=== PATIENT | male | born 1930 | race Caucasian/White ===

== ENCOUNTER 2016-07-05 06:41 | Outpatient (CLI) | payer MEDICARE ==
[~2016-07-05] VITALS: Ht 175.3 cm; Wt 95.5 kg
--- NOTE | ~2016-07-05 | HEMODYNAMI ---
PATIENT:GAVIN VERONICA MEDICAL RECORD: [id number] : 34 LOCATION:[facility] ADMISSION DATE: 07/05/16 Generatedon:07/05/20169:24 Patient name: GAVIN VERONICA Patient #: [id number] SSN: [id number] : 1930 Date of study: 07/05/2016 Page: Of Hemodynamic Procedure Report Patient Data Patient Demographics Procedure consent was obtained First Name: GAVIN Gender: Male Last Name: JEREMÍAS : 1930 Middle Initial: E Age: 85 year(s) Patient #: [id number] Race: SSN: [id number] Additional ID: [id number] Contact details [address]: [address] [place] [address] State: [place] City: [place] Zip code: [address] Past Medical History Performed procedures and imaging results Date Procedure Procedure Results Comments 07/05/2016 No ACC stress or imaging studies were performed History of disease Date Diagnosis Comments CAD Allergies: No known allergies Admission Admission Data Admission Date: 07/05/2016 Admission Time: 6:41 Admit Source: Other Insurance Payor: Medicare Height (in.): 69 BSA: 2.11 (m2) Height (cm.): 175.26 BMI: 31.01 (kg/m2) Weight (lbs.): 210 Weight (kg.): 95.25 Medications upon Admission Medications Dosage Times Administered Last Remarks per Delivery Day Date and Time Aspirin Yes 07/05/2016 (any) 0:00 Lab Results Lab Result Date: 07/05/2016 Lab Result Time: 0:00 CBC Name Units Result Min Max Hemoglobin g/dl 12.6 -*(----)-- 13.5 17.5 Procedure Procedure Types Cath Procedure Diagnostic Procedure LHC LHC w/Coronaries w/Grafts PCI Procedure SVG-BMS/DERIK Initial Procedure Description Procedure Date Procedure Date: 07/05/2016 Procedure Start Time: 8:50 Procedure End Time: 9:23 Procedure Staff Name Function Reggie Maradiaga MD Performing Physician Page Gramajo RT Scrub Abbie Lopez RN Nurse Jeet Ridley RN Office Sweeper Niharika Burroughs RT Monitor Procedure Data Cath Procedure Fluoroscopy Diagnostic fluoroscopy Total fluoroscopy Time: 8.3 time: 8.3 min min Diagnostic fluoroscopy Total fluoroscopy dose: dose: 563.46 mGy 563.46 mGy Contrast Material Contrast Material Type Amount (ml) Isovue 300 128 Entry Location Entry Primary Successful Side Size Upsize Upsize Entry Closure Succes sful Closure Location (Fr) 1 (Fr) 2 (Fr) Remarks Device Remarks Femoral Right 5 Fr 6 Fr Exoseal artery Short Estimated blood loss: 10 ml Diagnostic catheters Device Type Used For End Catheter Placement Cordis 5Fr JL 4.0 Left Coronary Catheter (MP) Angiography Cordis 5Fr 3DRC Catheter Right Coronary (MP) Angiography Cordis Infinity 5Fr AR SVG Angiography MOD Catheter Cordis Infinity 5Fr AR SVG Angiography MOD Catheter Cordis Infinity 5Fr IM Internal mammary catheter arteriography Cordis Infinity 5Fr AR 2 MOD catheter Cordis 5Fr Pigtail LV Angiography Catheter (MP) Procedure Complications No complications Procedure Medications Medication Administration Route Dosage Oxygen NC 2 l/min Benadryl I.V. 50 mg Lidocaine 2% added to field 20 Heparin Flush Bag added to field 2 bags (1000units/500ml NS) 0.9% NaCl I.V. 100 ml/hr Versed I.V. 1 mg Fentanyl I.V. 50 mcg Versed I.V. 0.5 mg Fentanyl I.V. 25 mcg Versed I.V. 0.5 mg Fentanyl I.V. 25 mcg Heparin Bolus I.V. 9500 units Plavix P.O. 600 mg Hemodynamics Rest BSA: 2.11 (m2) O2 Consumption: Estimated: 237.87 (ml/min) O2 Consumption indexed : Estimated:112.73 (ml/min/m) Heart Rate: 67 (bpm) Pressure Samples Time Site Value (mmHg) Purpose Heart Use Rate(bpm) 9:05 LV 127/3,19 EDP 73 9:06 AO 126/53(82) Pullback 70 9:06 LV 137/2,22 Pullback 70 Gradients Valve Time Site 1 Site 2 Mean SEP/DFP Peak To Heart Use (mmHg) (sec/min) Peak Rate (mmHg) (bpm) Aortic 9:06 LV AO 12 19 11 70 137/2,22 126/53(82) Calculations Valve P-P Mean Valve Index Valve Source Name Gradient Area Flow (cm2) Aortic 11 12 11 12 Snapshots Pre Cath Intra NCS Post Cath Vital Signs Time Heart Resp SPO2 NIBP (mmHg) Rhythm Pain Sedation Rate (ipm) (%) Status Level (bpm) 8:39:18 65 22 97 173/84(125) NSR 0 (11) 10(A) , No pain 8:43:48 65 16 95 159/78(121) NSR 0 (11) 10(A) , No pain 8:48:18 67 16 94 138/72(103) NSR 0 (11) 9(A) , No pain 8:52:44 66 16 95 153/76(119) NSR 0 (11) 9(A) , No pain 8:57:17 72 16 94 153/78(110) NSR 0 (11) 9(A) , No pain 9:01:37 69 14 95 138/73(101) NSR 0 (11) 9(A) , No pain 9:06:05 69 14 96 127/62(97) NSR 0 (11) 9(A) , No pain 9:10:30 67 15 95 145/70(120) NSR 0 (11) 9(A) , No pain 9:14:52 67 16 96 128/60(90) NSR 0 (11) 10(A) , No pain 9:19:14 68 15 95 145/72(91) NSR 0 (11) 10(A) , No pain Medications Time Medication Route Dose Verified Delivered Reason Notes Effectiveness by by 8:38:37 Oxygen NC 2 Reggie Buffie used for l/min Trey Lopez RN procedure 8:38:44 Benadryl I.V. 50 mg Reggie Buffie used for Trey Lopez RN procedure 8:38:55 Lidocaine 2% added 20ml Reggie Reggie for local to vial Trey Maradiaga MD anesthetic field 8:39:01 Heparin Flush added 2 Reggie Reggie used for Bag to bags Trey Maradiaga MD procedure (1000units/500ml field NS) 8:39:11 0.9% NaCl I.V. 100 Reggie Buffie Per physician ml/hr Trey Lopez RN 8:43:42 Versed I.V. 1 mg Reggie Buffie for sedation Trey Lopez RN 8:43:48 Fentanyl I.V. 50 Reggie Buffie for sedation mcg Trey Lopez RN 8:50:28 Versed I.V. 0.5 Reggie Buffie for sedation mg Trey Lopez RN 8:50:33 Fentanyl I.V. 25 Reggie Buffie for sedation mcg Trey Lopez RN 9:00:41 Versed I.V. 0.5 Reggie Buffie for sedation mg Trey Lopez RN 9:00:46 Fentanyl I.V. 25 Reggie Buffie for sedation mcg Trey Lopez RN 9:10:29 Heparin Bolus I.V. 9,500 Reggie Buffie for verifie d units Trey Lopez RN anticoagulation with dr maradiaga 9:18:33 Plavix P.O. 600 Reggie Buffie for mg Trey Lopez RN antiplatelet therapy Procedure Log Time Note 7:56:46 Lab Result : Hemoglobin 12.6 g/dl 8:00:37 Admit Source: Other 8:00:39 Insurance Payor : Medicare 8:00:54 Patient Height : 175.26 cm 8:00:56 Patient Weight : 95.25 kg 8:01:47 Diagnostic Cath Status : Elective 8:02:35 ACC Patient presents with Stable Angina CCS Anginal Class 2--Slight limitation of ordinary activity. 8:02:38 ACCPatient has been prescribed/administered the following anti-anginal medication within the last 2 weeks: None 8:02:40 Time tracking: Regular hours 8:02:44 Plan of Care:Hemodynamics will remain stable., Cardiac rhythm will remain stable., Comfort level will be maintained., Respiratory function will remain adequate., Patient/ family verbilizes understanding of procedure., Procedure tolerated without complication., Recovers from procedure without complications.. 8:02:56 H&P Date Dictated: 06/27/2016 Within 30 days and on chart., H&P Addendum completed by physician on day of procedure. (MUST COMPLETE FOR ALL OUTPATIENTS). 8:03:02 ACC The patient was administered the following blood thiners within the last 24 hours: ACCAspirin 8:15:54 Jeet Ridley RN sent for patient. Start room use. 8:31:30 Patient received from Outpatients to [facility] 2 Alert and oriented. Tansferred to table in Supine position. 8:31:31 Warm blankets applied, and luz hugger turned on for patient comfort. 8:31:31 Correct patient and procedure confirmed by team. 8:31:32 Signed procedure consent form obtained from patient. 8:31:33 ECG and BP/O2 sat monitors applied to patient. 8:31:34 Full Disclosure recording started 8:37:42 Vital chart was started 8:37:47 Rhythm: sinus rhythm 8:37:50 Pre-procedure instructions explained to patient. 8:37:51 Pre-op teaching completed and patient verbalized understanding. 8:37:52 Family in waiting room. 8:37:54 Patient NPO since Midnight. 8:38:00 Patient allergic to No known allergies 8:38:03 Is the patient allergic to Iodine/contrast media? No. 8:38:10 Patient diabetic? No. 8:38:37 Oxygen 2 l/min NC was given by Abbie Lopez RN; used for procedure; 8:38:44 Benadryl 50 mg I.V. was given by Abbie Lopez RN; used for procedure; 8:38:55 Lidocaine 2% 20ml vial added to field was given by Reggie Maradiaga MD; for local anesthetic; 8:39:01 Heparin Flush Bag (1000units/500ml NS) 2 bags added to field was given by Reggie Mraadiaga MD; used for procedure; 8:39:11 0.9% NaCl 100 ml/hr I.V. was given by Abbie Lopez RN; Per physician; 8:41:20 Previous problem with sedation/anesthesia? No ? 8:41:23 Snore? Yes 8:41:24 Sleep apnea? No 8:41:25 Deviated septum? No 8:41:26 Opens mouth fully? Yes 8:41:26 Sticks out tongue? Yes 8:41:28 Airway obstruction? No ? 8:41:32 Dentures? Yes In 8:41:35 Pre procedure: right dorsailis pedis pulse 2+ Normal; easily identifiable; not easily obliterated 8:41:38 Patient pain scale 0/10 ?. 8:41:43 IV patent on arrival in left hand with 0.9% NaCl at [facility]. 8:41:47 Lab results completed and on chart. 8:41:50 Right groin area was prepped with chlora-prep and draped in sterile fashion 8:41:52 Alarms reviewed by R. N. 8:41:52 Sharps counted by scrub and verified by R.N. 8:41:57 Use device set Femoral Dx 8:41:58 Acist Syringe opened to sterile field. 8:41:58 Bag Decanter opened to sterile field. 8:41:59 Cardinal Cath Pack opened to sterile field. 8:41:59 Terumo 5Fr Cabot Sheath opened to sterile field. 8:42:00 St Jae 260cm J .035 wire opened to sterile field. 8:42:01 Acist Hand Control opened to sterile field. 8:42:01 Acist Manifold opened to sterile field. 8:42:02 Cordis Infinity 5Fr Multipack catheter opened to sterile field. 8:42:03 Tegaderm 4 x 4 opened to sterile field. 8:43:16 Final Timeout: patient, procedure, and site verified with staff and physician. All members of the team are in agreement. 8:43:23 Right groin site verified by team. 8:43:26 Physical assessment completed. ASA score P 2 - A patient with mild systemic disease as per Reggie Maradiaga MD. 8:43:29 Sedation plan: IV Moderate Sedation Versed, Fentanyl 8:43:42 Versed 1 mg I.V. was given by Abbie Lopez RN; for sedation; 8:43:48 Fentanyl 50 mcg I.V. was given by Abbie Lopez RN; for sedation; 8:47:43 Procedure started. 8:49:35 Baseline sample Acquired. 8:50:12 Local anesthetic to right femoral artery with Lidocaine 2% by Reggie Maradiaga MD.INITIAL ACCESS ONLY 8:50:28 Versed 0.5 mg I.V. was given by Abbie Lopez RN; for sedation; 8:50:33 Fentanyl 25 mcg I.V. was given by Abbie Lopez RN; for sedation; 8:51:17 A 5 Fr sheath was inserted into the Right Femoral artery 8:51:51 A Cordis 5Fr JL 4.0 Catheter (MP) was advanced over the wire and used for Left Coronary Angiography. 8:54:29 Catheter removed. 8:56:29 A Cordis 5Fr 3DRC Catheter (MP) was advanced over the wire and used for Right Coronary Angiography. 8:56:31 Catheter removed. 8:57:33 A Cordis Infinity 5Fr AR MOD Catheter was advanced over the wire and used for SVG Angiography. to RCA 8:58:57 A Cordis Infinity 5Fr AR MOD Catheter was advanced over the wire and used for SVG Angiography. to Circ 8:59:08 Catheter removed. 9:00:41 Versed 0.5 mg I.V. was given by Abbie Lopez RN; for sedation; 9:00:46 Fentanyl 25 mcg I.V. was given by Abbie Lopez RN; for sedation; 9:02:01 A Cordis Infinity 5Fr AR 2 MOD catheter was advanced over the wire and used for .SVG to Circ 9:02:33 Catheter removed. 9:02:40 A Cordis Infinity 5Fr IM catheter was advanced over the wire and used for Internal mammary arteriography.to LAD 9:04:46 Merit BasixCompak Inflation Kit opened to sterile field. 9:04:47 High Pressure Extension Tubing (Trey) opened to sterile field. 9:04:48 [place] Dajie Luge Straight 300cm 0.014 guide wire opened to sterile field. 9:04:48 Medtronic Launcher 6Fr AR 1.0 guide catheter opened to sterile field. 9:04:50 Terumo 6Fr Cabot Sheath opened to sterile field. 9:04:57 A Cordis 5Fr Pigtail Catheter (MP) was advanced over the wire and used for LV Angiography. 9:05:49 LV gram done using CANTRELL 9:05:53 EF : 50 % 9:05:55 LV hemodynamics recorded. 9:06:17 Injector settings: Ml/sec: 10, Volume: 20, 9:06:19 Catheter removed. 9:07:19 Sheath upsized to a 6 Fr Short. 9:07:41 PCI Site: SVG to RCA 9:07:44 ACC Pre-intervention MARTINE Flow is 2. 9:09:14 6 Fr AR 1.0 guide catheter was inserted over the wire 9:10:26 Luge wire advanced. 9:10:29 Heparin Bolus 9,500 units I.V. was given by Abbie Lopez RN; for anticoagulation; verified with dr maradiaga 9:12:35 Inflation number: 1 A [place] Dajie Ellis 2.0 X 20 balloon was prepped and advanced across the Aorta Right -> Dist RCA, then inflated to 10 ABDIAZIZ for 0:17 (min:sec). 9:13:52 Balloon removed over the wire. 9:16:00 Inflation Number: 2 A Medtronic Resolute 3.0 X 22 stent was prepped and advanced across the Aorta Right -> Dist RCA. The stent was deployed at 15 ABDIAZIZ for 0:31 (min:sec). 9:16:46 Stent catheter was removed intact over wire. 9:16:46 Wire removed. 9:16:47 Guide catheter removed. 9:16:58 Cordis 6Fr Exoseal opened to sterile field. 9:17:08 Sheath removed intact; hemostasis achieved with Exoseal to the Right Femoral artery. 9:17:10 Procedure ended.(Physican Out) 9:17:24 Fluoroscopy time 08.30 minutes. 9:17:29 Flurop Dose total: 563.46 9:17:29 Fluoroscopy dose: 563.46 mGy 9:17:33 Contrast amount:Isovue 300 128ml. 9:17:35 Sharps counted by scrub and verified by R.N. 9:17:37 Insertion/operative site no bleeding no hematoma. 9:17:43 Post-op/insertion site Right Femoral artery dressed using a 4 x 4 and Tegaderm. 9:17:46 Post right femoral artery:stable, clean and dry 9:17:47 Post Procedure Pulses reassessed and unchanged 9:17:50 Post-procedure physical assessment completed. ASA score P 2 - A patient with mild systemic disease as per Reggie Maradiaga MD. 9:17:52 Post procedure rhythm: unchanged. 9:17:55 Estimated blood loss: 10 ml 9:17:56 Post procedure instruction explained to patient.Patient verbalizes understanding. 9:17:57 Patient needs reinforcement of post procedure teaching. 9:18:09 Procedure type changed to Cath procedure, Diagnostic procedure, LHC, LHC w/Coronaries w/Grafts, PCI procedure, SVG-BMS/DERIK Initial 9:18:14 Procedure Complication : No complications 9:18:17 See physician's report for complete and final results. 9:18:33 Plavix 600 mg P.O. was given by Abbie Lopez RN; for antiplatelet therapy; 9:19:26 Procedure and supply charges have been captured, reviewed, submitted and are correct. 9:22:56 Vital chart was stopped 9:23:03 Report given to Post Procedure Room. 9:23:07 Patient transfered to Post Procedure Room with Stretcher. 9:23:17 Procedure ended. 9:23:17 Full Disclosure recording stopped 9:23:31 End room use (Document Last) Intervention Summary Intervention Notes Time ActionType Lesion and Equipment Action# Pressure Duration Attributes Used 9:12:35 Inflate Aorta Right [place] 1 10 00:17 balloon -> Dist RCA Sci Ellis 2.0 X 20 balloon 9:16:00 [address] stent Aorta Right Medtronic 2 15 00:31 -> Dist RCA Resolute 3.0 X 22 stent Device Usage Item Name Manufacture Quantity Catalog Number Hospital Part Current Mini mal Lot# / Charge Number Stock Stock Serial# Code Acist Acist 1 21547 105033 674250 719901 20 Syringe Medical Systems Inc Bag Microtek 1 2002S 967459 98316 230837 5 [employer]inks[employer]ed [employer]. Cardinal Cardinal [address] 270069 06908 497598 5 Cath Pack Health Terumo 5Fr Terumo 1 [id number] 285329 641610 722296 [address] St Jae 1 [id number] 133926 237963 307124 30 260cm J .035 wire Acist Hand Acist 1 24002 692173 616192 437199 5 Control Medical Systems Inc Acist Acist 1 34740 430324 381628 749007 5 Manifold Medical Systems Inc Cordis Cardinal 1 [id number] 483978 89585 567955 30 Infinity Health 5Fr Multipack catheter Tegaderm 4 3M 1 1626W 000958 831493 548505 5 x 4 Cordis 5Fr Cardinal 1 [id number] 5 JL 4.0 Health Catheter (MP) Cordis 5Fr Cardinal 1 008109 5 3DRC Health Catheter (MP) Cordis Cardinal 1 [id number] 692952 954970 973678 15 Infinity Health 5Fr AR MOD Catheter Cordis Cardinal 1 [id number] 321027 027605 948331 5 Infinity Health 5Fr IM catheter Cordis Cardinal 1 [id number] 391441 062400 856108 20 Infinity Health 5Fr AR 2 MOD catheter Merit Merit 1 [id number] 112214 362616 152822 15 Entrenarme Medical Inflation Kit High Merit 1 [id number] 729526 56362 706070 10 Pressure Medical Extension Tubing (Maradiaga) [place] Sci [place] 1 [id number] 366083 925634 387824 5 Luge Scientific Straight 300cm 0.014 guide wire Medtronic Medtronic 1 [id number] 640830 27323 085255 1 Launcher 6Fr AR 1.0 guide catheter Terumo 6Fr Terumo 1 [id number] 392960 972317 637117 40 Cabot Sheath Cordis 5Fr Cardinal 1 666900 5 Pigtail Health Catheter (MP) [place] Sci [place] 1 [id number] 723702 904886 528670 1 [id number] Ellis Scientific 2.0 X 20 balloon Medtronic Medtronic 1 [id number] 146378 640279 7 [id number] Resolute 3.0 X 22 stent Cordis 6Fr Cardinal 1 [id number] 277858 287367 930916 10 [facility] Signature Audit [place] Stage Time Signature Unsigned Intra-Procedure 07/05/2016 Niharika 9:23:49 AM Counts RT(R) Signatures Monitor : Niharika Signature : Counts RT Date : Time : [place] [address] [place] [address]
[~2016-07-05 06:41] MED LIST: ASPIRIN 81 MG E81 MG PO; ASPIRIN325 MG PO; BAYER CHEWABLE81 MG PO; BETAPACE 80 MG80 MG PO; DOCUSATE S50 MG/5 ML PO; LASIX20 MG PO; LASIX40 MG PO; LISINOPRIL10 MG NG; LISINOPRIL10 MG PO; NEXIUM40 MG PO; NORCO 5/325 TAB1 TA1 PO; OSTEO BI-FLEX1 EAC1; OSTEO BI-FLEX1 EAC1 PO; PLAVIX75 MG PO; PRAVACHOL40 MG PO; PROSCAR5 MG PO; SINEMET 25/1001 TAB PO; TOPROL XL25 MG PO; TOPROL XL50 MG PO; ZOLOFT50 MG PO
[2016-07-05] MEDS ORDERED: STOOL SOFTENER100 M1 PO (07:18)
[2016-07-05] MEDS ORDERED: K-TAB10 MEQ PO (07:20)
[2016-07-05] MEDS ORDERED: FUROSEMIDE20 MG PO (07:20)
[2016-07-05 07:32] VITALS: BP 155/73; Ht 175.3 cm; Wt 95.5 kg
[2016-07-05 07:46] LABS: BASOPHILS 0.1 % (0.0-2.0); EOSINOPHILS 2.3 % (0-7); HEMATOCRIT 37.7 % (42.0-54.0); HEMOGLOBIN 12.6 g/dL (13.5-17.5); IMMATURE GRANULOCYTES 0.7 % (0-5); LYMPHOCYTES 13.4 % (15-50); MCH 30.3 pg (26.0-34.0); MCHC 33.4 g/dL (31.0-37.0); MCV 90.6 fL (80.0-100.0); MONOCYTES 9.1 % (2-11); NEUTROPHILS 74.4 % (40-80); PLATELET COUNT 224 10x3/uL (130-400); RBC 4.16 10x6/uL (4.20-6.10); RDW 13.8 % (11.5-14.5); WBC 7.4 10x3/uL (4.8-10.8)
[2016-07-05 08:01] LABS: ANION GAP 13.6 mmol/L (8-16); CALCIUM 8.4 mg/dL (8.5-10.1); CREATININE - SERUM 1.6 mg/dL (0.6-1.3); POTASSIUM - SERUM 4.6 mmol/L (3.5-5.1)
--- NOTE | 2016-07-05 10:39 | NUR ---
0997 PATIENT CONTINUES TO SLEEP. NC IN PLACE 2L WITH NO RESP DISTRESS. NSR RATE 60 W NO C/O CHEST PAIN. PULSES PALP X 4. R GROIN 6F EXOSEAL C/D/I WITH NO HEMATOMA OR BLEEDING. FAMILY AT BEDSIDE
--- NOTE | 2016-07-05 10:41 | NUR ---
1015 CONTINUES TO SLEEP BUT AWAKENS TO VERBAL STIMULI. NSR RATE 60 WITH NO C/O CEHST PAIN. PULSES PALP X 4. R GROIN 6F EXOSEAL C/D/I WITH NO HEMATOMA OR BLEEDING.
--- NOTE | 2016-07-05 11:32 | NUR ---
1045 R GROIN REMAINS C/D/I WITH NO HEMATOMA OR BLEEDING. EATING SANDWICH TRAY WITH ASSIST FROM . NSR RATE 65 WNO C/O CHEST PAIN. PULSES PALP X 4.
--- NOTE | 2016-07-05 14:01 | NUR ---
1145 RESTING WITH EYES CLOSED. VITALS ALL WNL. R GROIN REMAINS C/D/I WITH NO HEMATOMA OR BLEEDING. AT SIDE. 1245 R GROIN REMAINS C/D/I WITH NO HEMATOMA OR BLEEDING. NO NEEDS AT THIS TIME. 1330 HOB ELEVATED, WILL MONTIOR GROIN FOR BLEEDING. 1345 UP TO BEDSIDE TO DRESS WITH ASSIST FROM . AMBULATED TO BATHROOM TO VOID. R GROIN REMAINS C/D/I WITH NO BLEEDING. 1405 D/C INSTRUCTIONS DISCUSSED WITH PATIENT, RETURN INSTRUCTIONS GIVEN FOR NEXT WEEKS PCI. WHEELED DOWN VIA WHEELCHAIR BY CATH TEAM.
--- NOTE | 2016-07-23 15:45 | OP ---
PATIENT NAME: GAVIN VERONICA MEDICAL RECORD: [id number] :34 LOCATION:D.CAT ADMISSION DATE: SURGEON: ARPITA BOWDEN M.D. DATE OF OPERATION: 07/05/2016 REFERRING PHYSICIAN: Antonio Simental MD PROCEDURES PERFORMED: 1. Selective coronary angiography. 2. Left heart catheterization with ventriculogram. 3. Bypass angiography. 4. Left internal mammary injection. 5. PTCA and stent placement to the vein graft to the PDA. INDICATION: An 85-year-old gentleman presents with symptoms of worsening angina. EQUIPMENT USED: Diagnostic 5-Nepalese JL4, AR modified catheter, pigtail catheter, and mammary catheter. INTERVENTION: A 6-Nepalese AR1 guide, lose guide wire, 2.0 x 20 mm Goodhue balloon, 3.0 x 22 mm Resolute stent. TECHNIQUE: A 5-Nepalese sheath was inserted in retrograde fashion in the right common femoral artery. Next, selective coronary angiography was performed in standard 5-Nepalese JL4 and AR modified catheters. Bypass angiography was performed using the AR modified catheter. The internal mammary was selected with internal mammary catheter. Finally, left heart catheterization was performed using pigtail catheter. CORONARY ANATOMY: 1. Left main: Left main trunk is moderate in caliber. It gives rise to the LAD and circumflex. It has mild irregularities, but nothing worse than 20%. 2. LAD: This vessel is 100% occluded in the proximal segment. There is competitive flow seen to the LAD and the diagonal branch. 3. Circumflex: This vessel is moderate in caliber. It is 100% occluded in the proximal segment. 4. Ramus: This vessel is large in caliber. The proximal vessel has been stented. The stent is widely patent. 5. Right coronary artery: This vessel is moderate in caliber and dominant. It has a long ulcerated 90% stenosis involving the mid to distal vessel. There is competitive flow seen to the PDA. 6. Saphenous vein graft to the PDA. This graft demonstrates an ulcerated 99% stenosis just beyond its origin. There was slow flow is seen throughout the graft. 7. Saphenous vein graft to diagonal branch. This graft has been stented at the origin. There is a 70% to 80% in-stent restenosis at the origin in the stent. 8. Left internal mammary artery to LAD: This graft is widely patent throughout its course. The anastomosis is free of disease. 9. Left ventricle: Left ventricle is normal in size. No wall motion abnormalities are noted. Estimated ejection fraction is in lower limits of normal around 50%. DESCRIPTION OF INTERVENTION: A 6-Nepalese sheath was inserted in retrograde fashion in the right common femoral artery. Next, 100 units per kilogram of OPERATIVE REPORT [id number] GAVIN VERONICA heparin was infused. A 6-Nepalese AR1 guide was advanced and engaged in the vein graft to the PDA. Next, a Luge wire was placed in the distal body of the graft. It was predilated with a 2.0 x 20 mm Goodhue balloon at 10 atmospheres. Next, a 3.0 x 22 mm Resolute stent was placed across the ulcerated stenosis and the stent was deployed at 15 atmospheres. Injection was seen to be widely patent with 0% residual stenosis. There is marked improvement in distal flow through the graft. At this point, the wire and guide were removed. IMPRESSION: Successful percutaneous transluminal coronary angioplasty and stent of the vein graft to the PDA. PLAN: I will likely stage him bringing back in 1 week to perform PTCA to the vein graft to the diagonal. TRANSINT:[id number] Voice Confirmation ID: [id number] DOCUMENT ID: [id number] ARPITA BOWDEN M.D. at 1545 CC: [id number] DICTATION DATE: 07/05/16 0927 ASSISTANT AT SURGERY: 07/05/16 1013 [facility] CLI 07/05/16 [facility] [address] [place] [address]
[2016-08-17] MEDS ORDERED: REQUIP0.5 MG PO (15:17)
[2016-08-17] MEDS ORDERED: LISINOPRIL10 MG PO (15:18)
== END 2016-07-05 14:19 | disposition home or self-care (01) ==
LOC: D.CATH 06:41
PROVIDERS: Internal Medicine Cardiovascular Disease
DX: I25.119 Atherosclerotic heart disease of native coronary artery with unspecified angina pectoris (principal); I25.719 Atherosclerosis of autologous vein coronary artery bypass graft(s) with unspecified angina pectoris; T82.855A Stenosis of coronary artery stent, initial encounter
CPT/HCPCS: 93459; C9604

== ENCOUNTER 2016-07-12 05:53 | Outpatient (CLI) | payer MEDICARE ==
[~2016-07-12] VITALS: Ht 175.3 cm; Wt 89.5 kg
--- NOTE | ~2016-07-12 | HEMODYNAMI ---
PATIENT:GAVIN VERONICA MEDICAL RECORD: [id number] : 34 LOCATION:[facility] ADMISSION DATE: 07/12/16 Generatedon:07/12/20169:00 Patient name: GAVIN VERONICA Patient #: [id number] SSN: [id number] : 1930 Date of study: 07/12/2016 Page: Of Hemodynamic Procedure Report Patient Data Patient Demographics Procedure consent was obtained First Name: GAVIN Gender: Male Last Name: JEREMÍAS : 1930 [facility] Initial: E Age: 85 year(s) Patient #: [id number] Race: SSN: [id number] Additional ID: [id number] Contact details Address: [address] [place] [address] State: [place] City: [place] Zip code: [address] Past Medical History History of disease Date Diagnosis Comments CAD Allergies: No known allergies Admission Admission Data Admission Date: 07/12/2016 Admission Time: 5:53 Admit Source: Other Lab Results Lab Result Date: 07/12/2016 Lab Result Time: 0:00 CBC Name Units Result Min Max Hemoglobin g/dl 12.6 -*(----)-- 13.5 17.5 Procedure Procedure Types Cath Procedure PCI Procedure SVG-BMS/DERIK Initial Procedure Description Procedure Date Procedure Date: 07/12/2016 Procedure Start Time: 8:27 Procedure End Time: 8:53 Procedure Staff Name Function Niharika Burroughs RT Monitor Jeet Ridley RN Home Delivery Driver Abbie Lopez RN Nurse Reggie Maradiaga MD Performing Physician Ryan Johnson RT Scrub Additional PCI Information PCI indication: Staged PCI Procedure Data Cath Procedure Fluoroscopy Diagnostic fluoroscopy Total fluoroscopy Time: 8.3 time: 8.3 min min Diagnostic fluoroscopy Total fluoroscopy dose: 703 dose: 703 mGy mGy Contrast Material Contrast Material Type Amount (ml) Isovue 300 38 Entry Location Entry Primary Successful Side Size Upsize Upsize Entry Closure Arteaga ccessful Closure Location (Fr) 1 (Fr) 2 (Fr) Remarks Device Remarks Femoral Right 6 Fr Mechanical artery Short Compression Estimated blood loss: 5 ml Procedure Complications No complications Procedure Medications Medication Administration Route Dosage Plavix P.O. 75 mg Oxygen NC 2 l/min Benadryl I.V. 50 mg Lidocaine 2% added to field 20 Heparin Flush Bag added to field 2 bags (1000units/500ml NS) Versed I.V. 1 mg Fentanyl I.V. 50 mcg Versed I.V. 1 mg Fentanyl I.V. 50 mcg Heparin Bolus I.V. 9000 units Fentanyl I.V. 50 mcg Hemodynamics Rest HGB: 12.6 (g/dl) Heart Rate: 64 (bpm) Snapshots Pre Cath Intra NCS Post Cath Vital Signs Time Heart Resp SPO2 etCO2 DJ3nnha NIBP (mmHg) Rhythm Pain Sedation Rate (ipm) (%) (mmHg) (mmHg) Status Level (bpm) 7:55:23 64 16 99 0 0 160/72(130) NSR 0 (11) 10(A) , No pain 7:59:49 63 16 97 0 0 162/79(126) NSR 0 (11) 10(A) , No pain 8:04:16 65 14 96 0 0 137/75(105) NSR 0 (11) 10(A) , No pain 8:08:34 64 16 97 0 0 152/75(115) NSR 0 (11) 9(A) , No pain 8:12:58 65 15 95 0 0 155/72(117) NSR 0 (11) 9(A) , No pain 8:17:16 65 15 96 0 0 157/78(111) NSR 0 (11) 9(A) , No pain 8:21:40 64 16 96 0 0 147/70(113) NSR 0 (11) 9(A) , No pain 8:26:03 66 16 98 0 0 146/69(113) NSR 0 (11) 9(A) , No pain 8:30:25 63 16 96 0 0 124/73(92) NSR 0 (11) 9(A) , No pain 8:34:39 64 16 96 0 0 145/69(111) NSR 0 (11) 9(A) , No pain 8:38:59 62 17 96 0 0 127/61(106) NSR 0 (11) 9(A) , No pain 8:43:15 62 16 96 0 0 136/65(102) NSR 0 (11) 9(A) , No pain 8:47:35 63 16 95 0 0 140/67(112) NSR 0 (11) 10(A) , No pain 8:51:57 64 12 97 0 0 157/67(108) NSR 0 (11) 10(A) , No pain Medications Time Medication Route Dose Verified Delivered Reason Notes Effectiveness by by 7:49:49 Plavix P.O. 75 mg Reggie Buffie used for Trey Lopez RN procedure 7:52:10 Oxygen NC 2 Reggie Buffie used for l/min Trey Lopez RN procedure 7:52:18 Benadryl I.V. 50 mg Reggie Buffie used for Trey Lopez RN procedure 8:02:15 Lidocaine 2% added 20ml Reggie Reggie for local to vial Trey Maradiaga MD anesthetic field 8:02:30 Heparin Flush added 2 Reggie Reggie used for Bag to bags Trey Maradiaga MD procedure (1000units/500ml field NS) 8:02:42 Versed I.V. 1 mg Reggie Buffie for sedation Trey Lopez RN 8:02:49 Fentanyl I.V. 50 Reggie Buffie for sedation mcg Trey Lopez RN 8:22:36 Versed I.V. 1 mg Reggie Buffie for sedation Trey Lopez RN 8:22:40 Fentanyl I.V. 50 Reggie Buffie for sedation mcg Trey Lopez RN 8:33:07 Heparin Bolus I.V. 9,000 Reggie Buffie for verifie d units Trey Lopez RN anticoagulation with dr maradiaga 8:40:10 Fentanyl I.V. 50 Reggie Buffie for sedation mcg Trey Lopez RN Procedure Log Time Note 7:30:51 Jeet Ridley RN sent for patient. Start room use. 7:44:04 Time tracking: Regular hours 7:44:08 Plan of Care:Hemodynamics will remain stable., Cardiac rhythm will remain stable., Comfort level will be maintained., Respiratory function will remain adequate., Patient/ family verbilizes understanding of procedure., Procedure tolerated without complication., Recovers from procedure without complications.. 7:44:11 Admit Source: Other 7:44:22 PCI Cath Status : Elective 7:44:29 PCI Indication : Staged PCI 7:45:44 Procedure type changed to Cath procedure, PCI procedure, SVG-BMS/DERIK Initial 7:46:26 Patient received from Outpatients to CCL 2 Alert and oriented. Tansferred to table in Supine position. 7:46:27 Warm blankets applied, and luz hugger turned on for patient comfort. 7:46:28 Correct patient and procedure confirmed by team. 7:46:29 Signed procedure consent form obtained from patient. 7:46:30 ECG and BP/O2 sat monitors applied to patient. 7:46:41 Full Disclosure recording started 7:49:49 Plavix 75 mg P.O. was given by Abbie Lopez RN; used for procedure; 7:52:10 Oxygen 2 l/min NC was given by Abbie Lopez RN; used for procedure; 7:52:18 Benadryl 50 mg I.V. was given by Abbie Lopez RN; used for procedure; 7:54:07 Vital chart was started 7:54:10 Rhythm: sinus rhythm 7:54:37 H&P Date Dictated: 06/27/2016 Within 30 days and on chart., H&P Addendum completed by physician on day of procedure. (MUST COMPLETE FOR ALL OUTPATIENTS). 7:54:39 Pre-op teaching completed and patient verbalized understanding. 7:54:39 Pre-procedure instructions explained to patient. 7:54:40 Family in waiting room. 7:54:43 Patient NPO since Midnight. 7:55:02 Patient allergic to No known allergies 7:55:05 Is the patient allergic to Iodine/contrast media? No. 7:55:08 Is patient on blood thinner?Yes 7:57:04 ACC The patient was administered the following blood thiners within the last 24 hours: ACCAspirin, ACCPlavix 7:58:15 Patient diabetic? No. 7:58:19 Previous problem with sedation/anesthesia? No ? 7:58:20 Snore? Yes 7:58:23 Sleep apnea? No 7:58:24 Opens mouth fully? Yes 7:58:24 Deviated septum? No 7:58:25 Sticks out tongue? Yes 7:58:27 Airway obstruction? No ? 7:58:31 Dentures? Yes In 7:58:34 Pre procedure: right dorsailis pedis pulse 2+ Normal; easily identifiable; not easily obliterated 7:58:37 Patient pain scale 0/10 ?. 7:58:44 IV patent on arrival in left hand with 0.9% NaCl at [facility]. 7:59:57 Lab Result : Hemoglobin 12.6 g/dl 8:00:04 Lab results pending. 8:00:07 Alarms reviewed by R. N. 8:00:07 Right groin area was prepped with chlora-prep and draped in sterile fashion 8:00:08 Sharps counted by scrub and verified by R.N. 8:00:55 Final Timeout: patient, procedure, and site verified with staff and physician. All members of the team are in agreement. 8:01:00 Right groin site verified by team. 8:01:03 Physical assessment completed. ASA score P 2 - A patient with mild systemic disease as per Reggie Maradiaga MD. 8:01:06 Sedation plan: IV Moderate Sedation Versed, Fentanyl 8:02:15 Lidocaine 2% 20ml vial added to field was given by Reggie Maradiaga MD; for local anesthetic; 8:02:30 Heparin Flush Bag (1000units/500ml NS) 2 bags added to field was given by Reggie Maradiaga MD; used for procedure; 8:02:42 Versed 1 mg I.V. was given by Abbie Lopez RN; for sedation; 8:02:49 Fentanyl 50 mcg I.V. was given by Abbie Lopez RN; for sedation; 8:22:36 Versed 1 mg I.V. was given by Abbie Lopez RN; for sedation; 8:22:40 Fentanyl 50 mcg I.V. was given by Abbie Lopez RN; for sedation; 8:25:49 Zero performed for pressure channel P1 8:25:55 Zero performed for pressure channel P1 8:25:58 Zero performed for pressure channel P1 8:27:13 Procedure started. 8:27:50 Local anesthetic to right femoral artery with Lidocaine 2% by Reggie Maradiaga MD.INITIAL ACCESS ONLY 8:28:51 Having technical difficulty with Acist Injector. Switched out for different injector. 8:29:34 Baseline sample Acquired. 8:29:55 A 6 Fr Short sheath was inserted into the Right Femoral artery 8:31:13 6 Fr AR 2.0 guide catheter was inserted over the wire 8:31:44 Cardiac Site: SVG to Diag has 80% stenosis 8:31:48 ACC Pre-intervention MARTINE Flow is 3. 8:33:07 Heparin Bolus 9,000 units I.V. was given by Abbie Lopez RN; for anticoagulation; verified with dr maradiaga 8:34:53 BMW wire advanced. 8:36:54 Inflation number: 1 A Reserve Sci [place] 3.5 X 15 balloon was prepped and advanced across the Aorta Left -> 1st Diag, then inflated to 13 ABDIAZIZ for 0:35 (min:sec). 8:38:26 Inflation number: 2 The Reserve Sci [place] 3.5 X 15 balloon was reinflated across the Aorta Left -> 1st Diag, to 15 ABDIAZIZ for 0:10 (min:sec). 8:39:34 Balloon removed over the wire. 8:40:10 Fentanyl 50 mcg I.V. was given by Abbie Lopez RN; for sedation; 8:42:41 Inflation number: 3 A Reserve Sci [place] 4.0 X 12 balloon was prepped and advanced across the Aorta Left -> 1st Diag, then inflated to 8 ABDIAZIZ for 0:06 (min:sec). 8:43:02 Inflation number: 4 The Reserve Sci [place] 4.0 X 12 balloon was reinflated across the Aorta Left -> 1st Diag, to 4 ABDIAZIZ for 0:09 (min:sec). 8:43:40 Inflation number: 5 The Reserve Sci [place] 4.0 X 12 balloon was reinflated across the Aorta Left -> 1st Diag, to 10 ABDIAZIZ for 0:20 (min:sec). 8:44:21 Inflation number: 6 The Reserve Sci [place] 4.0 X 12 balloon was reinflated across the Aorta Left -> 1st Diag, to 5 ABDIAZIZ for 0:18 (min:sec). 8:46:11 Balloon removed over the wire. 8:47:40 Cordis 6Fr Exoseal opened to sterile field. 8:48:16 Wire removed. 8:48:17 Guide catheter removed. 8:48:24 Sheath removed intact; hemostasis achieved with Mechanical Compression to the Right Femoral artery. 8:48:27 Procedure ended.(Physican Out) 8:48:43 Fluoroscopy time 08.30 minutes. 8:48:47 Fluoroscopy dose: 703 mGy 8:48:47 Flurop Dose total: 703 8:48:51 Contrast amount:Isovue 300 38ml. 8:48:52 Sharps counted by scrub and verified by R.N. 8:48:53 Insertion/operative site no bleeding no hematoma. 8:48:56 Post-op/insertion site Right Femoral artery dressed using a 4 x 4 and Tegaderm. 8:48:59 Post right femoral artery:stable, clean and dry 8:49:00 Post Procedure Pulses reassessed and unchanged 8:49:03 Post-procedure physical assessment completed. ASA score P 2 - A patient with mild systemic disease as per Reggie Maradiaga MD. 8:49:05 Post procedure rhythm: unchanged. 8:49:08 Estimated blood loss: 5 ml 8:49:09 Post procedure instruction explained to patient.Patient verbalizes understanding. 8:49:10 Patient needs reinforcement of post procedure teaching. 8:49:15 Procedure Complication : No complications 8:49:26 See physician's report for complete and final results. 8:49:44 Use device set Femoral PCI 8:49:45 Acist Hand Control opened to sterile field. 8:49:45 Acist Syringe opened to sterile field. 8:49:46 Cardinal Cath Pack opened to sterile field. 8:49:46 Bag Decanter opened to sterile field. 8:49:47 St Jae 260cm J .035 wire opened to sterile field. 8:49:47 Terumo 6Fr [place] Sheath opened to sterile field. 8:49:48 Merit BasixCompak Inflation Kit opened to sterile field. 8:49:49 Tegaderm 4 x 4 opened to sterile field. 8:49:49 Acist Manifold opened to sterile field. 8:50:28 Medtronic Launcher 6Fr AR 2.0 guide catheter opened to sterile field. 8:50:29 High Pressure Extension Tubing (Trey) opened to sterile field. 8:50:29 Bloom BMW [place] 2 J-tip 300cm 0.014 guide wir opened to sterile field. 8:52:30 Femstop placed over the right femoral artery at 150 mmHg. Hemostasis achieved. 8:52:39 St Jae Femstop Arch Gold opened to sterile field. 8:53:38 Procedure and supply charges have been captured, reviewed, submitted and are correct. 8:53:39 Vital chart was stopped 8:53:42 Report given to Post Procedure Room. 8:53:45 Patient transfered to Post Procedure Room with Stretcher. 8:53:54 Full Disclosure recording stopped 8:53:54 Procedure ended. 8:54:13 End room use (Document Last) Intervention Summary Intervention Notes Time ActionType Lesion and Equipment Action# Pressure Duration Attributes Used 8:36:54 Inflate Aorta Left Reserve 1 13 00:35 balloon -> 1st Diag Sci [place]tuado 3.5 X 15 balloon 8:38:26 Reinflate Aorta Left Reserve 2 15 00:10 balloon -> 1st Diag Sci [place] 3.5 X 15 balloon 8:42:41 Inflate Aorta Left Reserve 3 8 00:06 balloon -> 1st Diag Sci [place] 4.0 X 12 balloon 8:43:02 Reinflate Aorta Left Reserve 4 4 00:09 balloon -> 1st Diag Sci [place] 4.0 X 12 balloon 8:43:40 Reinflate Aorta Left Reserve 5 10 00:20 balloon -> 1st Diag Sci [place] 4.0 X 12 balloon 8:44:21 Reinflate Aorta Left Reserve 6 5 00:18 balloon -> 1st Diag Sci [place] 4.0 X 12 balloon Device Usage Item Name Manufacture Quantity Catalog Number Hospital Part Current Mini mal Lot# / Charge Number Stock Stock Serial# Code Reserve Sci Reserve 1 [id number] 1 [id number] Utuado Scientific 3.5 X 15 balloon Reserve Sci Reserve 1 [id number] 243865 721727 196624 1 [employer]tuado Scientific 4.0 X 12 balloon Cordis 6Fr Cardinal 1 [id number] 201879 912303 10 Exoseal Health Acist Acist 1 65793 082406 005496 288623 20 Syringe Medical Systems Inc Acist Hand Acist 1 48103 961202 050486 762317 5 Control Medical Systems Inc Bag Microtek 1 2002S 976743 81171 144186 5 Decanter Medical Inc. Cardinal Cardinal 1 [id number] 628588 87542 699374 5 Cath Pack Health Terumo 6Fr Terumo 1 [id number] 581962 622729 201191 [address] St Jae 1 739315 992930 379016 545014 30 260cm J .035 wire Merit Merit 1 [id number] 308213 651842 186797 15 Athena Design Systems Medical Inflation Kit Acist Acist 1 10120 463613 758117 506443 5 Talkbits Systems Inc Tegaderm 4 3M 1 1626W 354008 700017 509694 5 x 4 Medtronic Medtronic 1 [id number] 751725 13652 435972 1 Launcher 6Fr AR 2.0 guide catheter Bloom BMW Bloom 1 [id number] 830183 339641 264102 5 [place] 2 Vascular J-tip 300cm 0.014 guide wir High Merit 1 [id number] 845989 00305 470145 10 Pressure Medical Extension Tubing (Maradiaga) St Jae St Jae 1 V98202 484118 049488 498343 5 Femstop Arch Gold Signature Audit [place] Stage Time Signature Unsigned Intra-Procedure 07/12/2016 Niharika Bundy Counts 8:54:25 AM Counts RT(R) RT(R) 07/12/2016 8:58:54 AM Intra-Procedure 07/12/2016 Niharika 9:00:27 AM Counts RT(R) Signatures Monitor : Niharika Signature : Counts RT Date : Time : [address] [place] [address]
[~2016-07-12 05:53] MED LIST changes: +FUROSEMIDE20 MG PO; +K-TAB10 MEQ PO; +STOOL SOFTENER100 M1 PO
[2016-07-12 06:56] VITALS: BP 131/66; Ht 175.3 cm; Wt 89.5 kg
[2016-07-12 07:49] LABS: BASOPHILS 0.3 % (0.0-2.0); EOSINOPHILS 2.3 % (0-7); HEMATOCRIT 37.7 % (42.0-54.0); HEMOGLOBIN 12.6 g/dL (13.5-17.5); IMMATURE GRANULOCYTES 0.8 % (0-5); LYMPHOCYTES 14.6 % (15-50); MCH 30.2 pg (26.0-34.0); MCHC 33.4 g/dL (31.0-37.0); MCV 90.4 fL (80.0-100.0); MONOCYTES 10.5 % (2-11); NEUTROPHILS 71.5 % (40-80); PLATELET COUNT 210 10x3/uL (130-400); RBC 4.17 10x6/uL (4.20-6.10); RDW 13.8 % (11.5-14.5); WBC 7.1 10x3/uL (4.8-10.8)
[2016-07-12 08:02] LABS: ANION GAP 15.1 mmol/L (8-16); CALCIUM 8.1 mg/dL (8.5-10.1); CARBON DIOXIDE 25.4 mmol/L (21.0-32.0); CREATININE - SERUM 1.7 mg/dL (0.6-1.3); POTASSIUM - SERUM 4.5 mmol/L (3.5-5.1)
--- NOTE | 2016-07-12 09:35 | NUR ---
0925 PATIENT CONTINUES TO SLEEP. NSR 61 W NO C/O CHEST PAIN. PULSES PALP X 4. NO RESP DISTRESS BUT REMAINS ON 2L NC WHILE SLEEPING. R GROIN 6F EXOSEAL C/D/I WITH FEMSTOP ON ARRIVAL. WILL CONTINUE TO WATCH CLOSELY FOR BLEEDING. AND FAMILY AT BEDSIDE.
--- NOTE | 2016-07-12 10:10 | NUR ---
0955 CONTINUES TO SLEEP BUT AWAKENS TO VERBAL STIMULI. NSR RATE 60 W NO C/O CHEST PAIN. PULSES PALP X 4. R GROIN REMAINS C/D/I WITH FEMSTOP IN PLACE. AT BEDSIDE.
--- NOTE | 2016-07-12 10:31 | NUR ---
DECREASED PRESSURE TO R GROIN FEMSTOP BY 40. WILL MONITOR CLOSELY FOR BLEEDING. ALL VITALS WNL. AT SIDE.
--- NOTE | 2016-07-12 11:31 | NUR ---
1100 REMAINING PRESSURE RELASED FROM R GROIN FEMSTOP. WILL WATCH CLOSELY FOR BLEEDING. VITALS REMAIN WNL. 1130 FEMSTOP REMOVED FROM R GROIN, TEGADERM AND 2X2 APPLIED. WILL CONTINUE TO MONITOR FOR BLEEDING. PATIENT DENIES NEEDS AT THIS TIME. REMAINS AT SIDE.
--- NOTE | 2016-07-12 12:09 | NUR ---
HOB ELEVATED 15DEGREES, EATING TURKEY SANDWICH WITH ASSIST FROM . SIPPING SODA. ALL VITALS REMAIN WNL. R GROIN C/D/I WITH NO HEMATOMA OR BLEEDING.
--- NOTE | 2016-07-12 13:11 | NUR ---
PIV REMOVED FROM LEFT HAND WITH BANDAID APPLIED. AMBULATED TO BATHROOM TO VOID. UP TO BEDSIDE TO DRESS WITH ASSIST FROM . R GROIN REMAINS C/D/I WITH NO HEMATOMA OR BLEEDING.
--- NOTE | 2016-07-12 13:35 | NUR ---
R GROIN REMAINS C/D/I WITH NO HEMATOMA OR BLEEDING. D/C INSTRUCTIONS DISCUSSED WITH PATIENT AND AT BEDSIDE. WHEELED DOWN VIA WHEELCHAIR BY CATH TEAM.
--- NOTE | 2016-07-23 15:45 | OP ---
PATIENT NAME: GAVIN VERONICA MEDICAL RECORD: [id number] :34 LOCATION:D.CAT ADMISSION DATE: SURGEON: ARPITA BOWDEN M.D. DATE OF OPERATION: 07/12/2016 REFERRING PHYSICIAN: Antonio Simental MD PROCEDURES PERFORMED: PTCA and stent placed in the vein graft to the diagonal branch. INDICATION: An 85-year-old gentleman presents with recurrent angina. He underwent stent of the vein graft to the PDA last week. He returns today for completion of a staged procedure. EQUIPMENT USED: A 6-Gambian AR2 guide, BMW guide wire, 3.5 x 15 Cascade balloon, 4.0 x 12 mm Cascade balloon. DESCRIPTION OF INTERVENTION: A 6-Gambian sheath was inserted in retrograde fashion in the right common femoral artery. Next, ____ units per kilogram of heparin was infused. A 6-Gambian AR2 guide was advanced and engaged in the vein graft to the PDA. Injections revealed an 80% in-stent restenosis involving the origin of the bypass graft. A BMW guide wire was placed in the distal body of the graft. It was predilated with a 3.5 x 15 Cascade balloon at 16 atmospheres. Injections revealed about 50% to 60% residual stenosis. At this point, a 4.0 x 12 mm Cascade balloon was advanced and several inflations were performed at 8 atmospheres. Injections revealed about 20% residual stenosis. There is brisk flow through the graft. At this point, the wire and guide were removed. IMPRESSION: Successful percutaneous transluminal coronary angioplasty of the vein graft to diagonal branch. TRANSINT:[id number] Voice Confirmation ID: [id number] DOCUMENT ID: [id number] ARPITA BOWDEN M.D. at 1545 CC: [id number] DICTATION DATE: 07/12/16 0856 DOOR TO DOOR LEAD GENERATION: 07/12/16 0916 [facility] CLI 07/12/[address] [address]
[2016-08-17] MEDS ORDERED: REQUIP0.5 MG PO (15:17)
[2016-08-17] MEDS ORDERED: LISINOPRIL10 MG PO (15:18)
== END 2016-07-12 13:39 | disposition home or self-care (01) ==
LOC: D.CATH 05:53
PROVIDERS: Internal Medicine Cardiovascular Disease
DX: I25.119 Atherosclerotic heart disease of native coronary artery with unspecified angina pectoris (principal); Z95.5 Presence of coronary angioplasty implant and graft

== ENCOUNTER → 2016-07-31 07:43 | Outpatient (CLI) | payer MEDICARE ==
[2016-07-12 06:56] VITALS: BMI 29.1
[~2016-07-31 07:43] MED LIST changes: +HYDROCODON-ACE1 EAC7 PO; +LEVAQUIN500 MG PO; +REQUIP0.5 MG PO
== END | disposition home or self-care (01) ==
LOC: D.CT 07:43
DX: R93.1 Abnormal findings on diagnostic imaging of heart and coronary circulation (principal)

== ENCOUNTER 2016-08-07 11:15 | Outpatient (CLI) | payer MEDICARE ==
[~2016-08-07] VITALS: Ht 175.3 cm; Wt 95.5 kg
--- NOTE | ~2016-08-07 | HEMODYNAMI ---
PATIENT:GAVIN VERONICA MEDICAL RECORD: [id number] : 32 LOCATION:[facility] ADMISSION DATE: 08/07/16 Generatedon:08/07/201614:53 Patient name: GAVIN VERONICA Patient #: [id number] SSN: [id number] : 1930 Date of study: 08/07/2016 Page: Of Hemodynamic Procedure Report Patient Data Patient Demographics Procedure consent was obtained First Name: GAVIN Gender: Male Last Name: JEREMÍAS : 1930 Middle Initial: E Age: 85 year(s) Patient #: [id number] Race: SSN: [id number] Additional ID: [id number] Contact details [address]: [address] [place] [address] State: [place] City: [place] Zip code: [address] Past Medical History History of disease Date Diagnosis Comments CAD Allergies: No known allergies Admission Admission Data Admission Date: 08/07/2016 Admission Time: 11:15 Admit Source: Other Procedure Procedure Types Cath Procedure Miscellaneous Procedures Moderate Sedation up to 15 minutes Peripheral Cath Diagnostic Procedure Cath Peripheral Four Vessel Arteriogram Procedure Description Procedure Date Procedure Date: 08/07/2016 Procedure Start Time: 14:32 Procedure End Time: 14:50 Procedure Staff Name Function Page Gramajo RT Scrub Abbie Lopez RN Nurse Stone Puente RT Prop Drawer Magi Blackburn RT Monitor Reggie Yang MD Performing Physician Procedure Data Cath Procedure Fluoroscopy Diagnostic fluoroscopy Total fluoroscopy Time: 5.8 time: 5.8 min min Diagnostic fluoroscopy Total fluoroscopy dose: 356 dose: 356 mGy mGy Contrast Material Contrast Material Type Amount (ml) Isovue 300 124 Entry Location Entry Primary Successful Side Size Upsize Upsize Entry Closure [place]teaga ccessful Closure Location (Fr) 1 (Fr) 2 (Fr) Remarks Device Remarks Femoral Right 5 Fr Manual vein Compression Femoral Right 5 Fr Exoseal artery Estimated blood loss: 10 ml Diagnostic catheters Device Type Used For End Catheter Placement Cordis Infinity 5Fr IM Procedure catheter Procedure Complications No complications Procedure Medications Medication Administration Route Dosage Oxygen NC 2 l/min Lidocaine 2% added to field 20 Heparin Flush Bag added to field 2 bags (1000units/500ml NS) 0.9% NaCl I.V. 100 ml/hr Versed I.V. 1 mg Fentanyl I.V. 50 mcg Versed I.V. 1 mg Fentanyl I.V. 50 mcg Hemodynamics Rest Heart Rate: 66 (bpm) Snapshots Pre Cath Intra NCS Post Cath Vital Signs Time Heart Resp SPO2 etCO2 [id number] NIBP (mmHg) Rhythm Pain Sedation Rate (ipm) (%) (mmHg) (mmHg) Status Level (bpm) 14:14:27 65 22 100 0 0 163/87(131) NSR 0 (11) 10(A) , No pain 14:18:52 64 21 98 0 0 150/81(125) NSR 0 (11) 10(A) , No pain 14:23:10 64 18 94 0 0 137/76(117) NSR 0 (11) 10(A) , No pain 14:27:30 64 17 94 0 0 128/68(101) NSR 0 (11) 10(A) , No pain 14:31:46 65 15 95 0 0 136/72(108) NSR 0 (11) 9(A) , No pain 14:36:00 74 24 95 0 0 120/70(96) NSR 0 (11) 9(A) , No pain 14:40:12 66 16 94 0 0 130/69(119) NSR 0 (11) 9(A) , No pain 14:44:28 64 14 96 0 0 125/62(90) NSR 0 (11) 9(A) , No pain 14:48:44 62 16 97 0 0 121/65(99) NSR 0 (11) 10(A) , No pain Medications Time Medication Route Dose Verified Delivered Reason Notes Effe ctiveness by by 14:18:24 Oxygen NC 2 Ozzy Leiva used for l/min St. Kyle Lopez heel sorter 14:18:32 Lidocaine 2% added 20ml Ozzy Preciado for local to vial [facility] anesthetic field MD BASSETT 14:18:39 Heparin Flush added 2 Ozzy Preciado used for Bag to bags [facility] procedure (1000units/500ml field MD BASSETT NS) 14:18:50 0.9% NaCl I.V. 100 Ozzy Buffie Per ml/hr St. Kyle Lopez RN physician 14:26:20 Versed I.V. 1 mg Reggie Buffie for Trey Lopez RN sedation 14:26:26 Fentanyl I.V. 50 Reggie Buffie for mcg Trey Lopez RN sedation 14:32:54 Versed I.V. 1 mg Reggie Buffie for Trey Lopez RN sedation 14:32:58 Fentanyl I.V. 50 Reggie Buffie for mcg Trey Lopez RN sedation Procedure Log Time Note 13:40:24 Admit Source: Other 13:40:54 Diagnostic Cath status Elective 13:40:57 Stone Puente RT(R) sent for patient. Start room use. 13:40:59 Time tracking: Regular hours 13:41:05 Plan of Care:Hemodynamics will remain stable., Cardiac rhythm will remain stable., Comfort level will be maintained., Respiratory function will remain adequate., Patient/ family verbilizes understanding of procedure., Procedure tolerated without complication., Recovers from procedure without complications.. 13:42:38 Patient received from Outpatients to [facility] 1 Alert and oriented. Tansferred to table in Supine position. 14:13:07 Warm blankets applied, and luz hugger turned on for patient comfort. 14:13:07 Correct patient and procedure confirmed by team. 14:13:10 Signed procedure consent form obtained from patient. 14:13:13 ECG and BP/O2 sat monitors applied to patient. 14:13:14 Vital chart was started 14:13:15 Baseline sample Acquired. 14:13:20 Rhythm: sinus rhythm 14:13:24 Full Disclosure recording started 14:14:41 H&P Date Dictated: 08/07/2016 Within 30 days and on chart., H&P Addendum completed by physician on day of procedure. (MUST COMPLETE FOR ALL OUTPATIENTS). 14:14:44 Pre-procedure instructions explained to patient. 14:14:46 Family in waiting room. 14:14:50 Patient NPO since Midnight. 14:14:58 Patient allergic to No known allergies 14:15:03 Is patient on blood thinner?Yes 14:15:08 ACC The patient was administered the following blood thiners within the last 24 hours: ACCPlavix 14:15:10 Patient diabetic? No. 14:15:13 Snore? Yes 14:15:18 Sleep apnea? No 14:15:36 IV patent on arrival in left forearm with 0.9% NaCl at [facility]. 14:15:59 Lab results completed and on chart. 14:16:03 Right groin area was prepped with chlora-prep and draped in sterile fashion 14:16:04 Alarms reviewed by R. N. 14:16:04 Sharps counted by scrub and verified by R.N. 14:16:05 Physician paged 14:18:24 Oxygen 2 l/min NC was given by Abbie Lopez RN; used for procedure; 14:18:32 Lidocaine 2% 20ml vial added to field was given by Ozzy Elizondo MD; for local anesthetic; 14:18:39 Heparin Flush Bag (1000units/500ml NS) 2 bags added to field was given by Ozzy Elizondo MD; used for procedure; 14:18:50 0.9% NaCl 100 ml/hr I.V. was given by Abbie Lopez RN; Per physician; 14:25:19 Physician arrived 14:25:20 --------ALL STOP TIME OUT------ 14:25:21 Final Timeout: patient, procedure, and site verified with staff and physician. All members of the team are in agreement. 14:25:23 Right groin site verified by team. 14:25:29 Physical assessment completed. ASA score P 2 - A patient with mild systemic disease as per Reggie Yang MD. 14:25:34 Sedation plan: IV Moderate Sedation Versed, Fentanyl 14:26:20 Versed 1 mg I.V. was given by Abbie Lopez RN; for sedation; 14::26 Fentanyl 50 mcg I.V. was given by Abbie Lopez RN; for sedation; 14:26:51 Use device set Femoral Dx 14:26:53 Acist Syringe opened to sterile field. 14:26:54 Bag Decanter opened to sterile field. 14:26:54 Cardinal Cath Pack opened to sterile field. 14:26:56 Terumo 5Fr [place] Sheath opened to sterile field. 14:26:57 St Jae 260cm J .035 wire opened to sterile field. 14:27:01 Acist Hand Control opened to sterile field. 14:27:02 Acist Manifold opened to sterile field. 14:27:08 Tegaderm 4 x 4 opened to sterile field. 14:27:38 Procedure started. 14:28:11 Zero performed for pressure channel P1 14:28:37 Local anesthetic to right femoral artery with Lidocaine 2% by Reggie Yang MD.INITIAL ACCESS ONLY 14:32:39 A 5 Fr sheath was inserted into the Right Femoral vein 14:32:54 Versed 1 mg I.V. was given by Abbie Lopez RN; for sedation; 14:32:58 Fentanyl 50 mcg I.V. was given by Abbie Lopez RN; for sedation; 14:33:15 A 5 Fr sheath was inserted into the Right Femoral artery 14:34:00 A Cordis Infinity 5Fr IM catheter was advanced over the wire and used for Procedure. 14:34:11 Right carotid angiography performed. 14:42:05 Left carotid angiography performed. 14:45:47 Cordis 5Fr Exoseal opened to sterile field. 14:47:05 Sheath removed intact; hemostasis achieved with Exoseal to the Right Femoral artery. 14:47:21 Sheath removed intact; hemostasis achieved with Manual Compression to the Right Femoral vein. 14:47:29 See nurse's notes for procedure details. 14:47:44 Procedure ended.(Physican Out) 14:48:02 Fluoroscopy time 05.80 minutes. 14:48:08 Fluoroscopy dose: 356 mGy 14:48:08 Flurop Dose total: 356 14:48:35 Contrast amount:Isovue 300 124ml. 14:48:37 Sharps counted by scrub and verified by R.N. 14:48:43 Post right femoral artery:stable 14:49:15 Post procedure rhythm: unchanged. 14:49:18 Estimated blood loss: 10 ml 14:49:19 Post procedure instruction explained to patient.Patient verbalizes understanding. 14:49:24 Procedure and supply charges have been captured, reviewed, submitted and are correct. 14:50:03 Procedure Complication : No complications 14:50:07 Vital chart was stopped 14:50:08 See physician's report for complete and final results. 14:50:11 Report given to Outpatients. 14:50:16 Patient transfered to Outpatients with Stretcher. 14:50:20 Procedure ended. 14:50:20 Full Disclosure recording stopped 14:50:23 End room use (Document Last) Device Usage Item Manufacture Quantity Catalog Hospital Part Current Minimal Lot # / Name Number Charge Number Stock Stock Ser ial# Code Acist Acist 1 [id number] [id number] 104099 [id number] 20 Syringe [employer] Inc Bag Microtek 1 2002S 576108 94704 [id number] 5 Decanter [employer] Inc. Cardinal Cardinal 1 [id number] 350505 75203 731600 5 Cath Health Pack Terumo Terumo 1 [id number] 847395 041932 [id number] [address] [place] [address] Jae St Jae 1 295744 724060 917341 959458 30 260cm J .035 wire Acist Acist 1 04486 392965 765676 733560 5 Hand Medical Control Systems Inc Acist Acist 1 51962 692084 200292 724665 5 Manifold Medical Systems Inc Tegaderm 3M 1 1626W 322178 087476 084583 5 4 x 4 Cordis Cardinal 1 EX500 961880 810780 174782 10 5Fr Health Exoseal Cordis Cardinal 1 [id number] 519575 044921 944664 5 AxoGen 5Fr IM catheter Signature Audit [place] Stage Time Signature Unsigned Intra-Procedure 08/07/2016 Magi Blackburn 2:53:22 PM RT(R) Signatures Monitor : Magi Blackburn Signature : RT Date : Time : [address] [place] [address]
[~2016-08-07 11:15] MED LIST changes: -HYDROCODON-ACE1 EAC7 PO; -LEVAQUIN500 MG PO; -REQUIP0.5 MG PO
[2016-08-07 12:40] VITALS: BP 113/46; Ht 175.3 cm; Wt 95.5 kg
[2016-08-07 12:47] LABS: BASOPHILS 0.2 % (0.0-2.0); EOSINOPHILS 1.7 % (0-7); HEMATOCRIT 34.2 % (42.0-54.0); HEMOGLOBIN 11.3 g/dL (13.5-17.5); IMMATURE GRANULOCYTES 0.3 % (0-5); LYMPHOCYTES 13.7 % (15-50); MCH 29.9 pg (26.0-34.0); MCV 90.5 fL (80.0-100.0); MEAN PLATELET VOLUME 10.3 fL (7.4-10.4); MONOCYTES 9.3 % (2-11); NEUTROPHILS 74.8 % (40-80); PLATELET COUNT 188 10x3/uL (130-400); RBC 3.78 10x6/uL (4.20-6.10); RDW 13.8 % (11.5-14.5); WBC 6.3 10x3/uL (4.8-10.8)
[2016-08-07 13:02] LABS: ANION GAP 12.7 mmol/L (8-16); CALCIUM 8.8 mg/dL (8.5-10.1); CARBON DIOXIDE 26.2 mmol/L (21.0-32.0); CREATININE - SERUM 1.7 mg/dL (0.6-1.3); POTASSIUM - SERUM 4.9 mmol/L (3.5-5.1)
--- NOTE | 2016-08-07 15:29 | NUR ---
RESTING QUIETLY WITH NO DISTRESS NOTED. VSS WITH 5 FR EXOSEAL R/GROIN CDI NO BLEEDING NO HEMATOMA NOTED. FAMILY AT SIDE. WILL MONITOR
--- NOTE | 2016-08-07 16:00 | NUR ---
1600 RESTING QUIETLY WITH EYES CLOSED VSS NO DISTRESS NOTED 5 FR EXOSEAL R/GROIN CDI NO BLEEDING NO HEMATOMA NOTED WILL MONITOR
--- NOTE | 2016-08-07 16:44 | NUR ---
5 FR EXOSEAL R/GROIN CDI NO BLEEDING NO HEMATOMA NOTED. VSS WITH CHEST PAIN DENIED FAMILY AT SIDE WILL MONITOR
--- NOTE | 2016-08-07 17:16 | NUR ---
PIV REMOVED FROM LEFT ARM WITH DRESSING APPLIED. 5 FR EXOSEAL R/GROIN CDI NO BLEEDING NO HEMATOMA NOTED. REPOSITIONED TO SITTING WITH HOB UP 45 DEGREES SANDWICH AND SODA TO BEDSIDE
--- NOTE | 2016-08-07 17:48 | NUR ---
VERBAL AND WRITTEN DISCHARGE GONE OVER WITH PATIENT AND 5 FR EXOSEAL R/GROIN CDI NO BLEEDING NO HEMATOMA NOTED. LEFT VIA WC FOR TO DRIVE HOME CHEST PAIN DENIED
--- NOTE | 2016-08-08 13:16 | OP ---
PATIENT NAME: GAVIN VERONICA MEDICAL RECORD: [id number] :34 LOCATION:D.CAT ADMISSION DATE: SURGEON: ARPITA BOWDEN M.D. DATE OF OPERATION: 08/07/2016 REFERRING PHYSICIANS: Dr. Antonio Simental and also Dr. Virgil Atkins. PROCEDURE PERFORMED: Four-vessel angiography. INDICATION: An 85-year-old gentleman presents with dizziness and visual disturbances. EQUIPMENT USED: A 5-Indonesian mammary catheter. TECHNIQUE: A 5-Indonesian sheath was inserted in retrograde fashion in the right common femoral artery. Next, the mammary catheter was advanced to the aortic arch. At this point, a wire was used to selectively engage the innominate artery. Next, the catheter was used to selectively engage the left common carotid artery. Finally, the catheter was used to engage the left subclavian artery. FINDINGS: The right common carotid artery is large in caliber and widely patent. At the bifurcation point, the right internal carotid appears to have, in some views, a hazy and ulcerated 60% stenosis, but could be as much as 70%. The right external carotid artery demonstrates a long tubular 70%-80% stenosis in its proximal one-third. Left common carotid artery is large in caliber and widely patent. At the bifurcation point, the left internal carotid artery appears to have a smooth 50% stenosis. Left external carotid artery appears to have at least a 70% stenosis in the proximal segment. Left vertebral artery. This vessel is moderate in caliber, but diffusely diseased and does appear to have some high-grade stenosis in its mid segment. Right vertebral artery. This vessel is large in caliber and appears widely patent. IMPRESSION: It appears the patient has a 67% ulcerated stenosis involving the right internal carotid artery. It appears he also has high-grade disease involving the external carotid arteries on both sides. RECOMMENDATIONS: I will ask Dr. Atkins to review his case. TRANSINT:[id number] Voice Confirmation ID: [id number] DOCUMENT ID: [id number] ARPITA BOWDEN M.D. at 1316 CC: [id number] DICTATION DATE: 08/07/16 145 PROPELLER MECHANIC: 08/07/16 1527 DEP CLI 08/07/16 [facility] [address] [place] [address]
--- NOTE | 2016-08-08 13:16 | HP ---
PATIENT: GAVIN VERONICA MEDICAL RECORD: [id number] ACCOUNT: [id number] LOCATION:[facility] : 32 ADMISSION DATE: 08/07/16 HISTORY AND PHYSICAL EXAMINATION HISTORY OF PRESENT ILLNESS: Gavin is an 85-year-old gentleman followed in our clinic. He has a long history of coronary artery disease. More recently, he has been having some transient dizziness and some visual disturbances. I believe he had a recent carotid duplex, which was abnormal. He was subsequently referred for 4-vessel angiography. PAST MEDICAL HISTORY: 1. Hypertension. 2. Hyperlipidemia. 3. Coronary artery disease. MEDICATIONS: Aspirin p.o. daily, metoprolol 25 mg daily, Pravachol 40 mg daily. HABITS: He does not smoke tobacco. PHYSICAL EXAMINATION: VITAL SIGNS: Blood pressure is 130/70, pulse is 82. NECK: No JVD. CHEST: Clear to auscultation bilaterally, no wheezes or rales. CARDIAC: Regular rate and rhythm. No S4, no S3. A II/ systolic murmur in the right upper sternal border. ABDOMEN: Soft, nontender, no masses, no bruits. EXTREMITIES: Pulses are 2+ bilaterally. No edema. IMPRESSION: Dizziness. His recent carotid duplex revealed disease. He has had some symptoms of dizziness and possibly near syncope. PLAN: We will proceed for 4-vessel angiography today. TRANSINT:[id number] Voice Confirmation ID: [id number] DOCUMENT ID: [id number] ARPITA BOWDEN M.D. at 1316 CC: [id number] DICTATION DATE: 08/07/16 1457 HEALTH CARE AIDE: 08/07/16 1514 [facility] CLI 08/07/16 [address] [place] [address]
[2016-08-17] MEDS ORDERED: REQUIP0.5 MG PO (15:17)
[2016-08-17] MEDS ORDERED: LISINOPRIL10 MG PO (15:18)
== END 2016-08-07 17:51 | disposition home or self-care (01) ==
LOC: D.CATH 11:15
PROVIDERS: Internal Medicine Cardiovascular Disease
DX: I65.21 Occlusion and stenosis of right carotid artery (principal); I10 Essential (primary) hypertension; E78.5 Hyperlipidemia, unspecified; I25.10 Atherosclerotic heart disease of native coronary artery without angina pectoris; Z79.82 Long term (current) use of aspirin; Z79.899 Other long term (current) drug therapy; H53.9 Unspecified visual disturbance

== ENCOUNTER 2016-08-20 05:10 | Inpatient (IN) | payer MEDICARE ==
[2016-08-17 16:14] LABS: HEMATOCRIT 37.5 % (42.0-54.0); HEMOGLOBIN 12.3 g/dL (13.5-17.5); MCH 30.2 pg (26.0-34.0); MCHC 32.8 g/dL (31.0-37.0); MCV 92.1 fL (80.0-100.0); MEAN PLATELET VOLUME 10.9 fL (7.4-10.4); RBC 4.07 10x6/uL (4.20-6.10); RDW 14.2 % (11.5-14.5); WBC 7.4 10x3/uL (4.8-10.8)
[2016-08-17 16:25] LABS: APTT 32.1 SECONDS (22.8-39.4); INR 1.21 (0.85-1.17); PROTIME 15.1 SECONDS (11.6-15.0)
[2016-08-17 16:28] LABS: APPEARANCE CLEAR (CLEAR); BILIRUBIN NEGATIVE (NEGATIVE); COLOR YELLOW (YELLOW); GLUCOSE NEGATIVE (NEGATIVE); KETONE NEGATIVE (NEGATIVE); LEUKOCYTE ESTERASE NEGATIVE (NEGATIVE); NITRITE NEGATIVE (NEGATIVE); PROTEIN TRACE mg/dL (NEGATIVE); SPECIFIC GRAVITY 1.015 (1.005-1.020); UROBILINOGEN NORMAL (NORMAL)
[2016-08-17 16:30] LABS: ALBUMIN 4.1 g/dL (3.4-5.0); ANION GAP 15.4 mmol/L (8-16); BILIRUBIN - TOTAL 0.45 mg/dL (0.2-1.3); CALCIUM 8.8 mg/dL (8.5-10.1); CARBON DIOXIDE 26.4 mmol/L (21.0-32.0); CREATININE - SERUM 1.6 mg/dL (0.6-1.3); POTASSIUM - SERUM 4.8 mmol/L (3.5-5.1); PROTEIN - SERUM 7.1 g/dL (6.4-8.2)
--- NOTE | 2016-08-18 11:55 | HP ---
PATIENT: GAVIN VERONICA MEDICAL RECORD: [id number] ACCOUNT: [id number] LOCATION:[facility] : 32 ADMISSION DATE: 08/20/16 HISTORY AND PHYSICAL EXAMINATION NameGAVIN VERONICA (85yo, M) ID# [id number]. Date/Time08/08/2016 11:33ORUJV12 1930[facility] [facility] Surgery ClinicProviderEDHAYES GARAY MDInsuranceMed Primary: [place]) Insurance # : [id number] PCP : ALEJANDRA RODGERS Referring Provider Name : ALEJANDRA RODGERS Employer Name : RETIRED Prescription: ARGSDIR - Member is eligible. Chief Complaint Carotid stenosis Patient's Care Team Primary Care Provider (): ALEJANDRA RODGERS: [facility], [address] [place] [phone], , Referring Provider (): ALEJANDRA RODGERS: [facility], [address] [place] [address], [place] [phone], , Skiing Teacher: ARPITA BOWDEN MD Patient's Pharmacies [facility] ([facility]): [address] [place] [address], , [facility] (INVALID CONTACT INFO): [address] [place] [address], , Vitals BP:142/68 sitting R arm 08/08/2016 11:14 am 134/70 sitting L arm 08/08/2016 11:15 amBP Cuff Size:adult 08/08/2016 11:14 am adult 08/08/2016 11:15 amHR:64,reg 08/08/2016 11:15 amHt:5 ft 9 in 08/08/2016 11:15 amWt:210 lbs 08/08/2016 11:16 amNotes:has had some recent falls, one with loss of consciousness. After that saw Dr Rodgers and began CS workup. 08/08/2016 11:17 amBMI:31 08/08/2016 11:16 amJustin Reviewed Allergies NKDAMedications Reviewed Medications Aspir-81 daily09/09/13 enteredEllie Guallpacarbidopa 25 mg-levodopa 100 mg tablet start filledKatjeffrey Donisclopidogrel 75 mg xwrrox54/31/17 filledArgOX FACTORYfinasteride 5 mg rkdwep96/28/16 filledBlue Focus PR Consulting Systemslisinopril 10 mg tablet Take 1 tablet(s) every day by oral route.08/07/16 enteredBeryl Donismetoprolol succinate ER 25 mg tablet,extended release 24 hr06/27/16 filledBlue Focus PR Consulting SystemsOsteo Bi-Flex (5-Loxin) three times a day09/09/13 enteredEllie Guallpapravastatin 40 mg tablet 20mg daily05/28/16 filledSongvicerOPINIRole 0.5 mg tablet Take 1 tablet(s) twice a day by oral route.08/08/16 enteredBeryl Donissertraline 50 mg tnwkib19/28/16 filledSongviceProblems Reviewed Problems Coronary arteriosclerosis Carotid artery stenosis Family History Discussed Family History Non-contributory.Social History HISTORY AND PHYSICAL [id number] GAVIN VERONICA Discussed Social History Cardiology Family history of heart disease?: Y Smoking Status: Former smoker (Notes: quit 1994) High Cholesterol: Y High blood pressure: Y Overweight: Y Obese: Y Diabetes: N Alcohol intake: None Occupation: Retired Marital status: Is blood transfusion acceptable in an emergency?: Y Surgical History Reviewed Surgical History 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 HPI Cerebral Vascular Disease Reported by patient. Quality: dizziness Aggravating Factors: position change Associated Symptoms: syncope severe right internal carotid artery stenosis ROS Patient reports exercise intolerance but reports no fever, no night sweats, no significant weight gain, and no significant weight loss. He reports loss of consciousness (ONCE) and dizziness but reports no weakness, no numbness, no seizures, and no headaches; resting tremor right hand. He reports no dry eyes, no irritation, and no vision change. He reports no difficulty hearing and no ear pain. He reports no frequent nosebleeds and no nose/sinus problems. He reports no sore throat, no bleeding gums, no snoring, no dry mouth, no mouth ulcers, no oral abnormalities, and no teeth problems. He reports no chest pain, no arm pain on exertion, no shortness of breath when walking, no shortness of breath when lying down, no palpitations, and no known heart murmur. He reports no cough, no wheezing, no shortness of breath, and no coughing up blood. He reports no abdominal pain, no vomiting, normal quin e tite, no diarrhea, not vomiting blood, no nausea, and no constipation. He reports no incontinence, no difficulty urinating, no hematuria, and no increased frequency. He reports no muscle aches, no muscle weakness, no HISTORY AND PHYSICAL [id number] GAVIN VERONICA E arthralgias/joint pain, no back pain, a nd no swelling in the extremities. He reports no abnormal mole, no jaundice, and no rashes. He reports no depression, no sleep disturbances, feeling safe in relationship, and no alcohol abuse. He reports no fatigue. He reports no swollen glands and no bru ising. He reports no runny nose, no sinus pressure, no itching, no hives, and no frequent sneezing. ROS as noted in the HPI Physical Exam Patient is an 85-year-old male. Constitutional: General Appearance healthy-appearing, well developed, and overweight. Level of Distress NAD. Ambulation ambulating normally. Cardiovascular: Apical Impulse not displaced or no thrill. Heart Auscultation normal s1 and s2; no murmurs, rubs, or gallops; and RRR. Arterial Pulses no abdominal aorta bruits, femoral bruits, or po pliteal bruits and 2+ bilateral, carotid 2+ bilateral, femoral 2+ bilateral, popliteal 2+ bilateral, and dorsalis pedis 2+ bilateral. Edema no edema or varicosities. Lungs: Repiratory Effort no dyspnea. Percussion no hyperresonance or dullness or flatness . Auscultation no wheezing, rhonchi, or rales / crackles and breathing sounds normal, good air movement, and CTA except as noted. Abdomen: Bowl Sounds normal. Inspection and Palpation no tenderness, guarding, masses, or rebound tenderness and soft and non -distended. Liver non-tender and no hepatomegaly. Spleen non-tender and no splenomegaly. Hernia none palpable. Ears, Nose, Throat: Hearing grossly normal hearing. Nose no external nose lesion. Lips, Teeth, and Gums no mouth or lip ulcers. Oropharynx: mois t mucous membranes. Musculoskeletal System: Gait And Stance normal gait and stance and wide-based. Digits and Nails normal nails and no cyanosis. Neurologic: Cranial Nerves grossly intact. Reflexes DTRs 2+ bilaterally throughout. Sensation grossly intact; resting tremor right hand parkinsonian. Lymph Nodes: Lymph Nodes no cervical LAD, supraclavicular LAD, axillary LAD, or inguinal LAD. Eyes: Lids and Conjunctivae no discharge or pallor and non-injected. Pupils PERRLA. Cornea grossly intact. EOM EOMI. Lens clear. Sclerae non-icteric. Neck: Neck no masses or enlarged lymph nodes and supple, trachea midline, and carotid bruits (bilateral). Thyroid no enlargement or nodules and non-tender. Skin: Inspection and Palpation no rash, lesions, ulcers, jaundice, or abnormal nevi. Assessment / Plan severe right internal carotid artery stenosis Unstable gait Resting tremor 1. Left carotid artery stenosis I65.22: Occlusion and stenosis of left carotid artery 2. Carotid artery stenosis I65.29: Occlusion and stenosis of unspecified carotid artery HISTORY AND PHYSICAL [id number] GAVIN VERONICA CAROTID STENOSIS: CARE INSTRUCTIONS 3. Coronary arteriosclerosis in pala artery I25.10: Atherosclerotic heart disease of pala coronary artery without angina pectoris Discussion Notes he would benefit from right carotid endarterectomy I have discussed his disease process with him and his in detail as well as the alternative methods of treatment . we discussed right carotid endarterectomy and the expected benefits and risk which included bleeding, infection, stroke, loss of limb and . He understands all of the above and wishes to proceed with planned procedure. We will schedule rig ht carotid endarterectomy in the near future Return to Office to see Virgil Garay MD at [facility] on or around 08/10/2016 VIRGIL GARAY MD at 1155 CC: [id number] DICTATION DATE: 08/08/16 1100 CASH APPLICATIONS CLERK: JOSE MIGUEL 08/15/16 1135 [id number] [place] [address]
[~2016-08-20] VITALS: Ht 175.3 cm; Wt 91.8 kg
[2016-08-20] VITALS (54 sets, daily range): BP systolic 112–164; BP diastolic 44–72; BMI 28.8; BMI 29.7
[~2016-08-20 05:10] MED LIST changes: +REQUIP0.5 MG PO
--- NOTE | 2016-08-20 11:28 | NUR ---
PT ARRIVED TO ROOM AT 10:39AM VIA BED. PT IS CONVERSANT. ON 10L O2 SIMPLE MASK 98%, RESPIRATIONS 17. HR 62 SINUS, BP 117/50, CVP 6. INVOS L72, R70. TEMP ON CRITICOR DELEON 37.2. PT HAD LEFT SUBCLAVIAN CENTRAL LINE WITH PLASMALYTE AT 100. CHANGED TO 30ML/HR PER ORDER, ZENICEF HUNG AND RUNNING AT 11.4ML/HR. PT HAS ON TEDS AND SCDS. PEDAL PULSES CONFIRMED WITH DOPPLER. HAS LEFT RADIAL ART LINE, PROTECTED BY WRIST STABILIZER. TELEMETRY MONITORING IN PLACE.
--- NOTE | 2016-08-20 11:36 | NUR ---
Patient Name: GAVIN VERONICA Admission Status: Elective Accout number: [id number] Admission Date: 08-20-2016 : 1930 Admission Diagnosis: Attending: ROSEANN Current LOS: 1 Anticipated DC Date: 08-21-2016 Planned Disposition: Home Primary Insurance: MEDICARE A & B Is the patient Alert and Oriented? Yes * How many steps to enter\exit or inside your home? THREE STEPS INTO HOME * PCP DR RODGERS * Pharmacy [facility] * Preadmission Environment Home with Family * ADLs Independent * Equipment None * Other Equipment PT'S SHOWER HAS SEAT * List name and contact numbers for known caregivers / representatives who currently or will assist patient after discharge: NEREYDA VERONICA, SPOUSE, * Community resources currently utilized None * Additional services required to return to the preadmission environment? No * Can the patient safely return to the preadmission environment? Yes * Has this patient been hospitalized within the prior 30 days at any hospital? No Discharge Planning Comments: CM MET WITH PATIENT TO ASSESS DC PLAN/NEEDS. HE STATED HE LIVES AT HOME WITH HIS SPOUSE AND IS INDEPENDENT IN HIS CARE/ADL'S. STATED HE USUALLY DRIVES HIMSELF AND THAT HIS WILL DRIVE HIM HOME AT [place]. STATED HE AMBULATES WITH NO ASSISTANCE. HE REPORTS HAVING THREE STEPS INTO HIS HOME AND THAT HE HAS NO TROUBLE GETTING UP/DOWN THOSE THREE STEPS. HE STATED HE HAS NO DME AND DENIED NEED FOR ANY DME AT [place]. HE STATED HE HAS USED HH SERVICES (PHYSICAL THERAPY) IN THE PAST AFTER A SHOULDER SURGERY, BUT CANNOT REMEMBER HH AGENCY NAME. HE DENIED NEED FOR ANY HH OR REHAB SERVICES AT DISCHARGE. HE REPORTS HIS HOME A SAFE PLACE AND PLANS TO RETURN HOME AT [place]. CM WILL FOLLOW AND ASSIST WITH ANY DC NEEDS THEY ARISE. [employer]: Katelin Vargas RN, CM
--- NOTE | 2016-08-20 11:38 | NUR ---
CALLED ANSWERING SERVICE FOR CONSULT FOR DR. RODGERS.
--- NOTE | 2016-08-20 12:02 | NUR ---
PT HAS HAD HIS ORAL MEDICATIONS. SWALLING WITH NO DIFFICULTY. PT IS EATING LUNCH AT THIS TIME. ASKED FOR MASHED POTATOES. ORDER PLACED.
--- NOTE | 2016-08-20 12:28 | NUR ---
RESPIRATORY THERAPIST IN ROOM FOR PATIENT INCENTIVE SPIROMETRY. 1500 REACHED
--- NOTE | 2016-08-20 12:30 | NUR ---
NITRO RESTARTED AT 12:20 FOR SYSTOLIC READING OVER 145 AND FAILED TO LOWER ON OWN WITHIN SEVERAL MINUTES. STARTED AT 5ML/HR AND TITRATED UNTIL LEVELED AT MAX 130'S SYSTOLIC ON 6.5ML/HR (.333MCG/KG/MIN)
--- NOTE | 2016-08-20 14:18 | NUR ---
PT RESTING QUIETLY AT THIS TIME. DR RODGERS HAS BEEN IN TO SEE PATIENT.
--- NOTE | 2016-08-20 15:29 | NUR ---
PT AWAKE. FAMILY AT BEDSIDE. DENIES NEEDS AT THIS TIME.
--- NOTE | 2016-08-20 16:29 | NUR ---
PT SITTING UP EATING DINNER. AT THIS TIME. ALERT, CONVERSANT. DENIES PAIN. ICE PACK IN PLACE AT RIGHT NECK. DRESSING INTACT. NITRO RUNNING AT 17ML/HR (0.872MCG/KG/MIN)
--- NOTE | 2016-08-20 18:42 | NUR ---
PT STARTED ON CLEVIPREX. HAD MAXED OUT ON NITRO TRYING TO KEEP SYSTOLIC BELOW 140.
--- NOTE | 2016-08-20 18:51 | NUR ---
PT TAKEN OFF NASAL CANULA. SATS WERE 100% ON 1L. HAS MAINTAINED ABOVE 94% EVEN WHILE CONVERSING WITH FAMILY. PT ICE PACK REFILLED FOR 4TH TIME. LET HIM KNOW HE ONLY HAD ABOUT ANOTHER HOUR OF KEEPING THE ICE ON HIS NECK. NO ADDITIONAL SWELLING NOTED AT RIGHT SIDE NECK.
--- NOTE | 2016-08-20 19:20 | NUR ---
REPORT REC'D AND CARE ASSUMED, REC'D PT AWAKE, ALERT, ORIENTED X 3, ON ROOM AIR TALKING WITH FAMILY IN ROOM, RIGHT NECK INCISION WITH SM AMOUNT OF EDEMA, ICE PACK TO SITE, LDLSCL DRSG CDI WITH PLASMALYTE @ 30CC, ZINACEF @ 11.4CC/HR AND CLEVIPREX @ 3MG/HR OR 6CC, CM-SR, LEFT RADIAL DARIO WITH FLEXION BOARD IN USE, DARIO LEVELED AND ZEROED WITH RETURN OF APPROPRIATE WAVEFORM, RIGHT UPPER CHEST DRSG CDI WITH RICHARD DRAIN COMPRESSED WITH SANGUINOUS DRAINAGE, CRITICORE DELEON PATENT WITH BLOODY URINE NOTED, AWARE, BILAT TEDS/SCDS INTACT, PP VIA DOPPLER, PT DENIES PAIN, STATES "MY NECK IS JUST SORE", REFUSES PAIN PILL AT THIS TIME, STATES " I DON'T LIKE TO TAKE ANYTHING", SR UP X 2, CALL LIGHT IN REACH.
--- NOTE | 2016-08-20 20:15 | NUR ---
PT'S O2 SAT DECREASED TO 84% WHILE CONVERSING WITH FAMILY, DEEP BREATHING AND COUGHING DONE, O2 SAT REMAINS 86%, O2 PLACED @ 1LITER VIA NC, WILL CONT TO MONITOR FOR CHANGES.
--- NOTE | 2016-08-20 20:55 | NUR ---
EVENING MEDS GIVEN ORDERED, PT ASSISTED TO POSITION FOR COMFORT IN BED, PT DENIES FURTHER NEEDS, TITRATING CLEVIPREX NEEDED.
--- NOTE | 2016-08-20 22:05 | NUR ---
PT RESTING EYES CLOSED, RESP EVEN AND UNLABORED, VSS, WILL CONT TO MONITOR FOR CHANGES.
[2016-08-21] VITALS (45 sets, daily range): BP systolic 106–139; BP diastolic 43–75
--- NOTE | 2016-08-21 00:10 | NUR ---
PT REPOSITIONED FOR COMFORT, DRY COUGH NOTED, PT REPORTS "IT IS NOT PRODUCTIVE", OXYGEN OUT OF NOSE, O2 SAT DECREASED WHILE SLEEPING, COUGHING AND DEEP BREATHING DONE, O2 SAT 97%, OXYGEN PLACED CORRECTLY, PT DENIES PAIN OR NEEDS, SIPS OF WATER PROVIDED.
--- NOTE | 2016-08-21 02:00 | NUR ---
PT RESTLESS IN BED, STATES " I CAN'T SEEM TO GET UP IN THE BED", PT REPOSITIONED UP IN BED FOR COMFORT, VSS.
--- NOTE | 2016-08-21 03:30 | NUR ---
PT RESTING EYES CLOSED, O2 SAT DECREASES AT TIMES WHILE SLEEPING, APPEARS TO HAVE SHORT PERIODS OF APNEA, WILL MONITOR FOR CHANGES.
--- NOTE | 2016-08-21 05:45 | NUR ---
Sylvain MICHEL AT BS RIGHT RICHARD DRAIN DC'D AND PRESSURE HELD, PT TOLERATED WELL, 2 X 2'S PLACED AND SITE COVERED WITH TEGADERM, PT REPOSITIONED UP IN BED FOR COMFORT, TITRATING CLEVIPREX, BP ELEVATED, WILL MONITOR FOR CHANGES.
--- NOTE | 2016-08-21 06:20 | NUR ---
TO BS, UPDATE GIVEN AND QUESTIONS ANSWERED.
--- NOTE | 2016-08-21 07:00 | NUR ---
PT WAS SLEEPING UPON ENTRY. AWAKENED EASILY WITH VOICE. SHIFT ASSESSMENT COMPLETE. PT ON 2L NC. HR 63 AND SINUS. RICHARD DRAIN AT RIGHT NECK REMOVED, DRESSING INTACT WITH VISIBLE BLOOD ON GAUZE. DRESSING TO RIGHT NECK INTACT. SWELLING HAS REDUCED SINCE YESTERDAY. VOICES NO COMPLAINTS OF PAIN. RIGHT FLO HOSE REMOVED FOR PULSE DETECTION. UNABLE TO PALPATE POSTERIOR OR DORSALIS. DOPPLER USED TO LOCATE POSTERIOR, UNABLE TO LOCATE DORSALIS. WILL CONTINUE TO MONITOR.
--- NOTE | 2016-08-21 09:19 | NUR ---
PULSES ABLE TO BE LOCATED BILATERALLY WITH DOPPLER IN DORSALIS AND POSTERIOR. LEFT RADIAL ART LINE REMOVED TIP INTACT AND COVERED WITH 2X2 AND TEGADERM. DELEON CATHETER REMOVED, TIP INTACT CLEVIPREX HAS BEEN WEANED OFF.
--- NOTE | 2016-08-21 10:21 | NUR ---
PT UP WALKING WITH PHYSICAL THERAPY. NO DISTRESS NOTED HR 85. SPO2 99% ON ROOM AIR
--- NOTE | 2016-08-21 11:19 | NUR ---
PT UP IN CHAIR AT BEDSIDE. NO DISTRESS NOTED. HR 68. BP 112/56
--- NOTE | 2016-08-21 12:22 | NUR ---
PT UP WALKING WITH PHYSICAL THERAPY. NO DISTRESS NOTED.
--- NOTE | 2016-08-21 13:44 | NUR ---
PT ASSISTED UP TO TOILET. MINIMAL ASSIST NEEDED ONLY TO REMOVED MONITORING LINES. PT ENCOURAGED TO DO INCENTIVE SPIROMETRY. REACHED 1250 X5.
--- NOTE | 2016-08-21 15:54 | NUR ---
PT SLEEPING AT THIS TIME. NO DISTRESS NOTED. AT BEDSIDE. BED LOW. CALL LIGHT IN REACH.
--- NOTE | 2016-08-21 16:45 | NUR ---
PT SITTING UP IN CHAIR FOR DINNER. DENIES ANY OTHER NEEDS AT THIS TIME.
--- NOTE | 2016-08-21 18:13 | NUR ---
PT RESTING QUIETLY AT THIS TIME. NO DISTRESS NOTED. AT BEDSIDE. DR RODGERS HAS BEEN IN TO SEE PATIENT THIS EVENING.
--- NOTE | 2016-08-21 19:20 | NUR ---
REC'D TO CARE, CARBONATION TESTER PER FLOWSHEET. PT ALERT AND ORIENTED, DENIES NEEDS. AT BS. VSS. R NECK INCISION WITH SMALL AMT SUPERFICIAL SWELLING NOTED, NO DRAINAGE. NEURO WNL. PT REPORTS "STILL A LITTLE BLOODY URINE WHEN I GO".. FALL PRECAUTIONS INFORCED, PT INSTRUCTED TO CALL PRIOR TO OOB. VSS. ALARMS ON. C/L IN REACH.
--- NOTE | 2016-08-21 19:54 | NUR ---
PT ASSISTED UP IN BED, FAMILY AT , BROUGHT HIM FOOD. UPDATE GIVEN AND QUESTIONS ANSWERED.
--- NOTE | 2016-08-21 21:11 | NUR ---
PO MEDS GIVEN PER MD ORDERS. PT TO BR AND BACK TO BED. ALARMS ON AND C/L IN REACH.
--- NOTE | 2016-08-21 22:46 | NUR ---
PT UP TO BR AND BACK TO BED. REASSESSMENT PER FLOWSHEET. NEURO WNL. NECK SITE UNCHANGED. RT AT BS FOR I.S. STRONG ALARM FIELD TECHNICIAN COUGH NOTED. ALARMS ON AND C/L IN REACH.
[2016-08-22] VITALS (27 sets, daily range): BP systolic 93–181; BP diastolic 47–91; Ht 175.3 cm; Wt 91.8 kg
--- NOTE | 2016-08-22 00:15 | NUR ---
PT UP TO BR. HE VOIDED 50ML BLOODY URINE IN URINAL AND REPORTS "LOOSE BM" KONG-CARE PER PT WITH PROVIDED WIPES. BACK TO BED. C/L IN REACH. REMAINS AT BEDSIDE.
--- NOTE | 2016-08-22 01:33 | NUR ---
UP TO BR. VOIDED 150ML GENERAL CLERK BLOOD TINGED URINE. BACK TO BED. NEURO WNL. C/L IN REACH.
--- NOTE | 2016-08-22 03:23 | NUR ---
REASSESSMENT PER FLOWSHEET, NO ACUTE CHANGES. FREQUENT TRIPS TO BR - REPORTS "STILL BLOODY URINE", DENIES PAIN WITH VOIDING. VSS. NEURO WNL. R NECK SITE UNCHANGED. ALARMS ON AND C/L IN REACH.
--- NOTE | 2016-08-22 05:48 | NUR ---
UP TO BR. VOIDED 50ML BLOODY URINE. BACK TO BED, VSS. C/L IN REACH.
--- NOTE | 2016-08-22 06:38 | NUR ---
BLADDER SCAN = 395ML
[2016-08-22 06:48] LABS: HEMATOCRIT 32.3 % (42.0-54.0); HEMOGLOBIN 10.1 g/dL (13.5-17.5); MCH 29.3 pg (26.0-34.0); MCHC 31.3 g/dL (31.0-37.0); MCV 93.6 fL (80.0-100.0); MEAN PLATELET VOLUME 10.9 fL (7.4-10.4); RBC 3.45 10x6/uL (4.20-6.10); RDW 14.4 % (11.5-14.5); WBC 6.7 10x3/uL (4.8-10.8)
--- NOTE | 2016-08-22 07:00 | NUR ---
REPORT RECEIVED. PATIENT SITTING UP IN CHAIR TALKING WITH . BATH JUST COMPLETED BY NURSE PRACTITIONER MANAGER. ASSESSMENT COMPLETED. PATIENT LEFT EATING BREAKFAST.
--- NOTE | 2016-08-22 07:05 | NUR ---
BATH AND LINEN CHANGE DONE. REPORT GIVEN. LAB PENDING
--- NOTE | 2016-08-22 09:51 | NUR ---
16FR DELEON INSERTED USING STERILE TECHNIQUE, NO RESISTANCE. PATIENT TOLERATED WELL. RECEIVED 700 ML OF THICK DARK BURGANDY URINE. IRRIGATED WITH 1,500 CC STERILE NS UNTIL RAN CLEAR. RECEIVED A TOTAL OF 1,700 ML BACK. DELEON WAS DC'D WTIH TIP INTACT. THERE WAS BLOOD NOTED DRAINING FROM HEAD OF PENIS AFTER INSERTION AND WHEN REMOVED. PATIENT WAS CLEANED AND LEFT IN SUPINE POSITION WITH EYES CLOSED. AT BEDSIDE.
--- NOTE | 2016-08-22 11:40 | NUR ---
PATIENT SITTING UP IN CHAIR AT BEDSIDE EATING LUNCH. HE AND HIS DENY NEEDS.
--- NOTE | 2016-08-22 13:26 | NUR ---
PATIENT UP TO URINATE. VOIDED 50CC OF PINK URINE. WILL CONTINUE TO MONITOR.
--- NOTE | 2016-08-22 14:23 | NUR ---
PATIENT BLADDER SCANNED. PER SCANNER THERE IS 236ML IN BLADDER. PATIENT DENIES FEELING LIKE HE CAN GO.
--- NOTE | 2016-08-22 14:46 | NUR ---
PATIENT FINISHING UP HIS LUNCH. DENIES NEEDS AT THIS TIME.
--- NOTE | 2016-08-22 16:30 | NUR ---
18FR DELEON WITH 10CC BULB PLACED WITH STERILE TECHNIQUE. PT TOLERATED WELL.
--- NOTE | 2016-08-22 16:46 | NUR ---
URINE SPECIMINE OBTAINED PER VERBAL ORDERS
[2016-08-22 17:52] LABS: APPEARANCE TURBID (CLEAR); BILIRUBIN NEGATIVE (NEGATIVE); COLOR RED (YELLOW); GLUCOSE NEGATIVE (NEGATIVE); KETONE NEGATIVE (NEGATIVE); LEUKOCYTE ESTERASE TRACE (NEGATIVE); NITRITE NEGATIVE (NEGATIVE); PROTEIN 1+ mg/dL (NEGATIVE); SPECIFIC GRAVITY 1.015 (1.005-1.020); UROBILINOGEN NORMAL (NORMAL)
[2016-08-22 17:53] LABS: BACTERIA FEW /hpf (NONE SEEN); RED CELLS - URINE >50 /hpf (0-5); WHITE CELLS - URINE 0-5 /hpf (0-5)
--- NOTE | 2016-08-22 19:34 | NUR ---
REPORT RECIEVED. ASSESSMENT COPLETE PER FLOW SHEET. VSS. PT AWAKE ALERT ORIENTED X4 DENIES PAIN OR NEEDS AT THIS TIME. EYES PERRLA 3MM BRISK. O2 VIA NC 2L O2 SAT 98% RR SHALLOW RATE OF 14 BILAT LUNGS CLEAR. RIGHT NECK INCISION SITE PATENT NO REDNESS SWELLING OR HEMATOMA PRESENT OPEN TO AIR. L SUBLAVIAN CVL PATENT DRSG CDI SL. R CHEST INCISION DRSG CDI. ABD DISTENDED NON TENDER BS ACTIVE X4. HEART S1S2 HR 64 NSR. DELEON PATENT CURRENTLY DRAINING DARK BLOODY URINE. BILAT RADIAL PULSES PALP +2 BILAT PEDAL PULSES FOUND VIA DOPPLER. BILAT FLO'S SCD'S ON REMOVED SKIN ASSESSMENT COMPLETE NO NEW FINDINGS. DENIES NEEDS. VSS. WILL CONTINUE TO MONITOR.
--- NOTE | 2016-08-22 21:16 | NUR ---
2100 MEDS ADM. DELEON CARE ADM. MINIMAL BLEEDING NOTED AT INSERTION SITE. NEEDS MET
--- NOTE | 2016-08-22 23:16 | NUR ---
REASSESSMENT COMPLETE PER FLOW SHEET. VSS. NO NEW CHANGES. WILL CONTINUE TO MONITOR. PT SLEEPING COMFORTABLY.
[2016-08-23] VITALS (22 sets, daily range): BP systolic 109–156; BP diastolic 46–67
--- NOTE | 2016-08-23 01:12 | NUR ---
PT UP OOB TO BR, LARGE BM NOTED
--- NOTE | 2016-08-23 02:21 | NUR ---
OOB TO CHAIR WITHOUT DIFFICULTY. VSS. NO NEW CHANGES DENIES NEEDS.
--- NOTE | 2016-08-23 03:40 | NUR ---
REASSESSMENT COMPLETE PER FLOW SHEET. NO NEW FINDINGS. GIVEN COKE PER REQUEST. DENIES FURTHER NEEDS.
--- NOTE | 2016-08-23 04:52 | NUR ---
PT UP OOB TO BR LARGE BM NOTED. BACK TO CHAIR
--- NOTE | 2016-08-23 06:48 | NUR ---
OUT OF CHAIR TO BR. NO BM NOTED. VSS. NO NEW CHANGES. WILL CONTINUE TO MONITOR.
--- NOTE | 2016-08-23 07:00 | NUR ---
REPORT RECEIVED. PATIENT SUPINE IN BED, ASSESSMENT COMPLETED. NO NEEDS VOICED.
--- NOTE | 2016-08-23 08:45 | NUR ---
PATIENT WALKED 500 FEET WITH JUANI FROM PHYSICAL THERAPY. HIS GAIT WAS NOTED TO BE MORE WOBBLY THAN IT WAS YESTERDAY. PATIENT DENIES FEELING WEAKER OR ANY DIFFERENT THAN YESTERDAY.
--- NOTE | 2016-08-23 09:40 | NUR ---
PATIENT SITTING UP IN CHAIR TALKING, SATS DECREASED TO 84%. OXYGEN AT 2L N/C APPLIED. SATS CAME BACK UP TO 97%. WILL CONTINUE TO MONITOR.
[2016-08-23 11:00] LABS: BASOPHILS 0.2 % (0.0-2.0); HEMATOCRIT 31.3 % (42.0-54.0); IMMATURE GRANULOCYTES 0.2 % (0-5); LYMPHOCYTES 13.5 % (15-50); MCH 29.6 pg (26.0-34.0); MCHC 31.9 g/dL (31.0-37.0); MCV 92.6 fL (80.0-100.0); MEAN PLATELET VOLUME 11.1 fL (7.4-10.4); MONOCYTES 9.3 % (2-11); NEUTROPHILS 73.8 % (40-80); PLATELET COUNT 166 10x3/uL (130-400); RBC 3.38 10x6/uL (4.20-6.10); RDW 14.3 % (11.5-14.5); WBC 5.7 10x3/uL (4.8-10.8)
--- NOTE | 2016-08-23 12:16 | NUR ---
Patient Name: GAVIN VERONICA Encounter No: [id number] : 1930 Primary Insurance: MEDICARE A & B Anticipated DC Date: 08-24-2016 Planned Disposition: Home External Planned Provider: DR GARAY DCP follow-up note: CM MET WITH PATIENT AGAIN TODAY TO RE-ASSESS DC PLAN. PT STILL PLANS TO DC HOME WITH HIS AND VOICED NO DC NEEDS AT THIS TIME. STATED HIS WILL DRIVE HIM HOME. AGAIN DENIED NEED FOR ANY HH, REHAB SERVICES OR DME AT DISCHARGE. DC IMM SIGNED AND PLACED IN PT'S CHART. CM WILL CONTINUE TO FOLLOW AND ASSIST WITH ANY DC NEEDS AT THEY ARISE. Katelin Vargas RN, CM
[2016-08-23] MEDS ORDERED: HYDROCODON-ACE1 EAC7 PO (13:28)
[2016-08-23] MEDS ORDERED: LEVAQUIN500 MG PO (14:35)
--- NOTE | 2016-08-23 14:35 | NUR ---
CM RECEIVED CALL FROM DR GARAY'S NURSE, PANKAJ, TO INFORM THAT PLAN IS FOR DISCHARGE HOME, BUT THAT PATIENT WILL NOW REQUIRE HH SERVICES DAILY FOR DELEON CARE. CM WAS INFORMED BY ETHAN LIRA THAT PATIENT WILL HAVE APPOINTMENT WITH DR GUEVARA, UROLOGIST, ON 08/28/16 AT 1:45PM AND THAT DELEON IS TO REMAIN UNTIL APPOINTMENT WITH UROLOGIST. CM SPOKE WITH PATIENT REGARDING HH ORDERS. PATIENT IS AGREEABLE TO HH SERVICES AND SIGNED HH LIN FORM FOR [facility]. CM PLACED CALL TO [facility] AND SPOKE TO SHELL TO INFORM OF HH ORDER AND NEED FOR DAILY HH SERVICES FOR DELEON CARE. CIRO SPOKE TO Lauren JOE OF [facility], WHO CONFIRMED DAILY HH NURSE AVAILABILITY CM FAXED REFERRAL/ORDER TO [facility] WHO WILL BEGIN HH SERVICES ON 08/24/16. CONTACT NUMBER FOR [facility] PROVIDED TO PATIENT. NO FURTHER DC NEEDS VOICED AT THIS TIME. JOVANA LUI RN,
--- NOTE | 2016-08-23 15:09 | NUR ---
CVL REMOVED BY ETHAN THOMAS WITH REPORTED TIP INTACT. PATIENT TOLERATED WELL.
--- NOTE | 2016-08-23 15:28 | NUR ---
DELEON CARE, EMPTYING, RECORDING, AND LEG BAG TEACHING DONE BY ETHAN THOMAS. ALL QUESTIONS ANSWERED.
--- NOTE | 2016-08-23 15:34 | NUR ---
WITH TEACHING, IS REFUSING TO HAVE ANYTHING TO DO WITH THE CARE, EMPTYING OR RECORDING OF URINE OUTPUT. SHE SAID "NO, I DON'T WANT ANYTHING TO DO WITH THAT".
--- NOTE | 2016-08-23 16:14 | NUR ---
DR GARAY HERE. SECONDARY TO CLOTS BEING PRESENT IN URINE, PATIENT WILL STAY OVERNIGHT.
--- NOTE | 2016-08-23 16:31 | NUR ---
PATIENTS LEG BAG SWITCHED OUT TO LARGE DRAINAGE BAG SINCE HE WILL BE STAYING. SAID HER GOODBYES TO HIM AND STATED HE WOULD BE BACK IN THE MORNING AROUND 0900. PATIENT DENIES NEEDS AT THIS TIME.
--- NOTE | 2016-08-23 18:30 | NUR ---
PATIENT VISITING WITH DAUGHTER AT BEDSIDE.
--- NOTE | 2016-08-23 19:14 | NUR ---
REPORT RECIEVED. ASSESSMENT COMPLET PER FLOW SHEET. VSS. PT AWAKE ALERT ORIENTED X4 DENIES PAIN OR NEEDS AT THIS TIME. O2 VIA RA O2 SAT 98% RR 16 SHALLOW BILAT LUNGS CLEAR. BS ACTIVE X4. ABD DISTENDED NON TENDER. HEART S1S2 HR 67 NSR. BP 113/64. DELEON PATENT BLOODY URINE NOTED. DENIES NEEDS. WILL CONTINUE TO MONITOR.
--- NOTE | 2016-08-23 21:00 | NUR ---
NO VISITORS AT THIS TIME. DENIES NEEDS. VSS. WILL CNOTINUE TO MONITOR.
--- NOTE | 2016-08-23 23:21 | NUR ---
REASSESSMENT COMPELTE PER FLOW SHEET. NO NEW CHANGES .VSS. OOB TO BR. SMALL BM NOTED.
[2016-08-24] VITALS (8 sets, daily range): BP systolic 131–176; BP diastolic 57–71
--- NOTE | 2016-08-24 03:16 | NUR ---
REASSESSMENT COMPLET PER FLOW SHEET. VSS. NO NWE CHANGES. PT SLEEPING COMFORTABLY. WILL CONTINUE TO MONITOR.
--- NOTE | 2016-08-24 07:00 | NUR ---
PT AWAKE, SITTING UP AT SIDE OF BED. VOICES NO COMPLAINTS. SON HAS BEEN IN TO VISIT THIS AM. PT DELEON HAS BLOODY URINE. NO IV.
--- NOTE | 2016-08-24 08:50 | NUR ---
DELEON CATHETER IRRIGATED. NO CLOTS SEEN. PT SUPPLIED WITH DELEON CARE WIPES. TEACHING WAS PROVIDED TO HIM PREVIOUSLY, SO HE TOOK WIPES FROM ME AND SHOWED ME HOW HE WAS TAUGHT TO CLEAN HIMSELF. PROPER DELEON CARE DEMONSTRATED BY PATIENT.
--- NOTE | 2016-08-24 09:22 | NUR ---
Nutrition follow-up: Diet: Regular PO Intake 75-100% of meals Labs reviewed Wt: 202# +BM PO intake good at this time RDN following.
--- NOTE | 2016-08-24 10:25 | NUR ---
DISCHARGE TEACHING PROVIDED TO PATIENT AND . FOLLOW UP APPOINTMENTS REVIEWED. MEDICATIONS REVIEWED. CLEAN CONTAINER PROVIDED FOR URINE OUTPUT MEASUREMENTS. DELEON CARE WIPES PROVIDED.
--- NOTE | 2016-08-24 11:21 | NUR ---
CIRO PLACED CALL TO [facility] TO INFORM THAT PATIENT HAS NOW DISCHARGED HOME. CIRO SPOKE WITH MARISSA AT [facility] WHO STATED THEY WILL ADMIT PT FOR HH SERVICES 08/25/16.
--- NOTE | 2016-08-25 13:38 | OP ---
PATIENT NAME: GAVIN VERONICA MEDICAL RECORD: [id number] :[birth year] LOCATION:[facility] D.CV04 ADMISSION DATE:08/20/16 SURGEON: VIRGIL GARAY MD DATE OF OPERATION: 08/20/2016 SURGEON: Virgil Garay MD ANESTHESIA: General endotracheal, Dr. Maldonado. OPERATION PERFORMED: Right carotid endarterectomy with patch angioplasty. PREOPERATIVE DIAGNOSIS: Severe right internal carotid artery stenosis. POSTOPERATIVE DIAGNOSIS: Severe right internal carotid artery stenosis. INDICATION FOR OPERATION: Severe right internal carotid artery stenosis. FINDINGS AT OPERATION: Severe right internal carotid artery stenosis. There were no EEG changes with clamping or unclamping of the carotid artery. ESTIMATED BLOOD LOSS: Less than 100 cc. DESCRIPTION OF PROCEDURE: After informed consent, adequate preoperative medication evaluation, the patient was brought to the operating room, placed on the table in the supine position. After induction of general endotracheal anesthesia and application of appropriate monitoring devices, the right neck and chest were prepped and draped in a sterile field, utilizing Betadine scrub, alcohol, and Betadine solution. A Betadine-impregnated drape was also used. An oblique incision was made in the skin crease. Dissection carried down the fascia. Hemostasis maintained with electrocautery. Facial vein was identified and divided. Utilizing sharp dissection, the common carotid, internal and external carotid arteries were dissected free of surrounding structures, protecting the neurological structures. The patient was given a calculated dose of heparin, after 3 minutes, clamps were applied. After 2 minutes, no EEG changes. The arteriotomy was made and extended with Salgado scissors. Artery underwent endarterectomy sharply. Artery underwent extensive debridement and irrigation. Utilizing a vascular patch, CorMatrix patch and running 7-0 Prolene suture, the arteriotomy was closed with patch angioplasty technique. All maneuvers to remove trapped air were performed. The clamps were removed sequentially. The patient was given a calculated dose of protamine to reverse the heparin. Hemostasis was achieved, and a #7 Ezra-Garner drain was left in the depth of wound and brought through the base of the neck. Neck was again irrigated. Instrument count and sponge count were correct times 2. Neck was closed in layers utilizing 3-0 Vicryl on the platysma, 5-0 subcuticular Monocryl on the skin. Sterile dressings were applied. The patient tolerated the procedure well and transferred to cardiovascular recovery in satisfactory condition. TRANSINT:[id number] Voice Confirmation ID: [id number] DOCUMENT ID: [id number] OPERATIVE REPORT [id number] GAVIN VERONICA EDWARD MD at 1338 CC: [id number] DICTATION DATE: 08/20/16 1031 LEAK DETECTOR: 08/20/16 1106 DIS IN 08/24/16 [place] [id number] [place] [id number]
--- NOTE | 2016-09-12 13:25 | DS ---
PATIENT:GAVIN VERONICA :34 MEDICAL RECORD: [id number] DISCHARGE SUMMARY ADMISSION DATE: 08/20/16 DISCHARGE DATE: 08/24/16 DISCHARGE DIAGNOSES: 1. Severe right internal carotid artery stenosis. 2. Hypertensive heart disease. 3. Parkinsonism. 4. Hyperlipidemia. 5. Hematuria. 6. Urinary retention. DISCHARGE MEDICATIONS: Please see medical reconciliation form. DISPOSITION: The patient has an appointment to see the urologist in 4 days, appointment to see Dr. Garay in 2-3 weeks. HOSPITAL COURSE: Mr. Veronica is admitted to the hospital and underwent a right carotid endarterectomy with patch angioplasty. Postoperatively, he did well, had no problems with bleeding, infection or arrhythmias. He is neurologically intact. He developed hematuria and his Horne was removed. He was unable to pass urine; therefore, he was recatheterized and will leave it in place until he sees urologist. Currently, he is ambulating and taking a diet. He has been given discharge instructions and wound precautions and will be seen as above. TRANSINT:[id number] Voice Confirmation ID: [id number] DOCUMENT ID: [id number] ANGELITA GARAY MD at 1325 CC: [id number] DICTATION DATE: 09/08/161111 AIRPORT MANAGER: 09/09/16 0029 DIS IN 08/24/16 [facility] [address] [place] [address]
== END 2016-08-24 10:37 | disposition home health service (06) | DRG 39 ==
LOC: D.CVICU 05:10 → D.SDCHOLD 05:10 → D.CVICU 08:41
PROVIDERS: Family Medicine; ADMIT Internal Medicine Cardiovascular Disease
PROC: 03UK0JZ Supplement Right Internal Carotid Artery with Synthetic Substitute, Open Approach (ICD-10-PCS; 2016-08-20)
PROC: 03CK0ZZ Extirpation of Matter from Right Internal Carotid Artery, Open Approach (ICD-10-PCS; principal; 2016-08-20 07:30)
PROC: 0T9B70Z Drainage of Bladder with Drainage Device, Via Natural or Artificial Opening (ICD-10-PCS; 2016-08-22)
DX: I65.21 Occlusion and stenosis of right carotid artery (principal); I11.9 Hypertensive heart disease without heart failure; G20 Parkinson's disease; E78.2 Mixed hyperlipidemia; R26.81 Unsteadiness on feet; R31.9 Hematuria, unspecified; R33.9 Retention of urine, unspecified

== ENCOUNTER 2016-08-25 09:02 | Emergency (ER) | payer MEDICARE ==
[2016-08-22 12:34] VITALS: BMI 29.6
[~2016-08-25 09:02] MED LIST changes: +HYDROCODON-ACE1 EAC7 PO; +LEVAQUIN500 MG PO
== END 2016-08-25 10:05 | disposition home or self-care (01) ==
LOC: D.ER 09:02
DX: L76.82 Other postprocedural complications of skin and subcutaneous tissue (principal)

== ENCOUNTER → 2016-09-12 07:59 | Outpatient (CLI) | payer MEDICARE ==
[2016-08-22 12:34] VITALS: BMI 29.6
== END ==
LOC: D.MRI 07:59
DX: G25.0 Essential tremor (principal)

== ENCOUNTER → 2016-10-02 10:06 | Outpatient (CLI) | payer MEDICARE ==
[2016-08-22 12:34] VITALS: BMI 29.6
== END | disposition home or self-care (01) ==
LOC: D.US 10:06
DX: G25.2 Other specified forms of tremor (principal); I70.219 Atherosclerosis of native arteries of extremities with intermittent claudication, unspecified extremity; I73.9 Peripheral vascular disease, unspecified

== ENCOUNTER → 2016-10-29 10:06 | Outpatient (CLI) | payer MEDICARE ==
[2016-08-22 12:34] VITALS: BMI 29.6
== END | disposition home or self-care (01) ==
LOC: D.MRI 10:06
DX: I70.219 Atherosclerosis of native arteries of extremities with intermittent claudication, unspecified extremity (principal); G25.2 Other specified forms of tremor

== ENCOUNTER 2017-06-06 14:46 | Inpatient (IN) | payer MEDICARE ==
[~2017-06-06] VITALS: Ht 177.8 cm; Wt 92.3 kg
[2017-06-06] MEDS ORDERED: ASCORBIC ACID500 MG PO (15:23)
[2017-06-06] MEDS ORDERED: PACERONE200 MG PO (15:25)
--- NOTE | 2017-06-06 15:27 | NUR ---
RECIVED FROM DR OFFICE PER IRIS. AT SIDE. ADMIT ASSESSMENT PER RN.
[2017-06-06 16:04] LABS: BASOPHILS 0.2 % (0-2); EOSINOPHILS 0.1 % (0-7); HEMATOCRIT 33.3 % (42.0-54.0); HEMOGLOBIN 10.1 g/dL (13.5-17.5); IMMATURE GRANULOCYTES 0.1 % (0-5); MCH 27.8 pg (26.0-34.0); MCHC 30.3 g/dL (31.0-37.0); MCV 91.7 fL (80.0-100.0); MEAN PLATELET VOLUME 10.7 fL (7.4-10.4); MONOCYTES 3.5 % (2-11); NEUTROPHILS 90.1 % (40-80); RBC 3.63 10x6/uL (4.20-6.10); RDW 16.5 % (11.5-14.5); WBC 8.3 10x3/uL (4.8-10.8)
[2017-06-06 16:09] LABS: PLATELET COUNT 224 10x3/uL (130-400)
--- NOTE | 2017-06-06 16:11 | NUR ---
ARRIVED FROM DOCTORS OFFICE. O2 SAT IS 72. O2 PLACED ON PT @ 2L. IV ATTEMPTED X3. VASCULAR ACCESS NURSE CALLED. SOME EDEMA IN LOWER EXTREMTIES. WILL CONTINUE TO MONITOR.
[2017-06-06 16:19] LABS: ALBUMIN 3.3 g/dL (3.4-5.0); ANION GAP 15.5 mmol/L (8-16); BILIRUBIN - TOTAL 0.98 mg/dL (0.2-1.3); CALCIUM 8.3 mg/dL (8.5-10.1); CARBON DIOXIDE 27.2 mmol/L (21.0-32.0); CREATININE - SERUM 1.9 mg/dL (0.6-1.3); MAGNESIUM - SERUM 2.1 mg/dL (1.8-2.4); POTASSIUM - SERUM 4.7 mmol/L (3.5-5.1); PROTEIN - SERUM 7.2 g/dL (6.4-8.2)
[2017-06-06 16:53] VITALS: BP 145/75
--- NOTE | 2017-06-06 18:04 | NUR ---
WITHOUT CHANGES OR DISTRESS NOTED AT THIS TIME. DENIES NEEDS.
--- NOTE | 2017-06-06 19:37 | NUR ---
PT IN BED. AT BEDSIDE. PROVIDED ICE WATER PER REQUEST. DENIES FURTHER NEEDS AT THIS TIME.
[2017-06-06 22:42] VITALS: BP 148/67
--- NOTE | 2017-06-07 00:45 | NUR ---
PT IN BED AT BEDSIDE. BOTH DENY NEEDS AT THIS TIME
--- NOTE | 2017-06-07 02:01 | NUR ---
LYING IN BED WITH EYES CLOSED, CALL LIGHT IN REACH. WILL CONTINUE WITH PLAN OF CARE.
[2017-06-07 05:19] VITALS: BP 173/67
--- NOTE | 2017-06-07 08:12 | NUR ---
AM ROUNDS - PT IN BED AND APPEARS TO BE SLEEPING WITH EQUAL AND NON LABORED BREATHING. O2 AT 2L VIA NC. IV TO LEFT HAND, NS AT 50CC/HR. DAUGHTER AT BEDSIDE. BED AT LOWEST POSITION. CALL WILHELM IN USE/REACH. SIDE RAILS UP X2. WILL CONTINUE TO MONITOR
[2017-06-07 10:27] VITALS: BP 170/77
--- NOTE | 2017-06-07 11:16 | NUR ---
ASSESSED PULMONARY STATUS. SPO2 87 ON 29%FI02. INCREASED 4L/M PT CURRENT SP02 93% . AUDIBLE EXP WHEEZE PRESENT BILATERAL APICES ANTERIOR BRADLEY OF ASCULTATION. BILATERAL EXCURSION PRESENT 0 CYANOSIS WILL CONTINUE TO MONITOR
[2017-06-07 11:56] VITALS: BP 172/80
[2017-06-07 12:50] VITALS: BMI 28.1
[2017-06-07 15:53] VITALS: BP 166/74
--- NOTE | 2017-06-07 20:32 | NUR ---
CALLED [facility] TO REQUESTED EGG CRATE MATTRESS COVER. PATIENT HAS BEEN ASKING AND FAMILY HAS BEEN ASKING FOR MATTRESS COVER. HOUSE SUPERVISER REPORTS SHE WILL DO HER BEST TO FIND ONE AND BRING IT UP THIS EVENING.
[2017-06-07 21:46] VITALS: BP 102/63
--- NOTE | 2017-06-07 23:07 | NUR ---
EGG CRATE MATTRESS OVERLAY PLACED ON BED.
[2017-06-08 01:22] VITALS: BP 153/62
--- NOTE | 2017-06-08 01:26 | NUR ---
PATIENT SLEEPING , SKIN IS CLAMMY. DIFFICULT TO WAKE, SLEEPING SOUND. DAUGHTER AT BEDSIDE. DENIES ANY NEEDS AT THIS TIME. BED LOW POSITION, CALL LIGHT IN REACH.
--- NOTE | 2017-06-08 02:49 | NUR ---
PT RESTING COMFORTABLY, NO NEEDS AT THIS TIME. CONTINUE TO MONITOR CLOSELY.
[2017-06-08 04:54] VITALS: BP 113/68
--- NOTE | 2017-06-08 07:45 | NUR ---
AM ROUNDS COMPLETED. INTRODUCED MYSELF TO PT PRIMARY RN FOR TODAYS SHIFT. PT A&O AND IN PLEASANT MOOD SITTING UP IN BED EATING BREAKFAST. PT STATES HE IS FEELING MUCH BETTER AND GOOD OVERALL. DENIES ANY CURRENT PAIN OR NEEDS, AT BEDSIDE, WILL PULL MORNING MEDICATIONS AND CPOC.
[2017-06-08 07:57] VITALS: BP 131/63
--- NOTE | 2017-06-08 10:23 | NUR ---
PT CALLED FOR ASSISTANCE TO BR. PT HAD SMALL SOFT FORMED BROWN BM. ASSISTED PT BACK INTO BED. PT DENIES ANY FURTHER NEEDS AT THIS TIME. CL IN REACH, FAMILY AT BEDSIDE. WILL CPOC.
[2017-06-08 11:44] VITALS: BP 160/75
--- NOTE | 2017-06-08 14:15 | NUR ---
INITIATED IVPB ANBX INFUSING VIA L.WRIST PIV WITH DRSG CDI AND SWAB CAPS IN USE. PROVIDED PT WITH NEW TUBING AND DATED IT ALL IT HAD NO DATES ON PREVIOUS TUBING PER Q72H POLICY. NEEDING A SPUTUM AND URINE SAMPLE ON PT AND HIM AND HIS STATE NOBODY HAS INFORMED THEM BUT THAT HE IS CAPABLE OF PEEING AND HAS PRODUCTIVE COUGH SO TEACHING WAS PROVIDED OF CC FOR URINE SAMPLE ALONG WITH SPECIMEN SUPPLIES. ALSO RESPIRATORY SPUTUM COLLECTION CUP PROVIDED AND TEACHING PROVIDED WELL. PT DENIES ANY CURRENT PAIN OR NEEDS AT THIS TIME. CL IN REACH, BED IN LOWEST, SIDE RAILS X2. WILL CPOC.
[2017-06-08 15:08] VITALS: BP 120/64
[2017-06-08 21:02] VITALS: BP 133/67
--- NOTE | 2017-06-08 22:29 | NUR ---
INITIAL ROUNDS COMPLETED AT 1925 HRS. PT DENIED ANY DISCOMFORT. AT BEDSIDE. ASSESSMENT COMPLETED AT 2010 HRS. VSS. O2 4LNC. LUNGS WITH SCATTERED EXP WHEEZES BILAT. IV TO L WRIST WITH NS AT TKO. IV PATENT. TREMORS NOTED TO BILAT HANDS. ALERT AND ORIENTED. REINFORCED TO PT AND NEED FOR URINE AND SPUTUM SAMPLE. BOTH STATED UNDERSTANDING. REFUSED FOR PT TO BE WEIGHTED. PM MEDS GIVEN. REFUSED ASPIRIN. OTHER MEDS OK. PT CURRENTLY WATCHING TV. WILL CONTINUE TO MONITOR. SR UP X2, CALL LIGHT WITHIN REACH AND AT BEDSIDE.
--- NOTE | 2017-06-08 23:53 | NUR ---
PT AWAKE; DENIES ANY DISCOMFORT. WILL CONTINUE TO MONTIOR.
[2017-06-09 00:19] VITALS: BP 127/70
--- NOTE | 2017-06-09 02:17 | NUR ---
PT AWAKE; DENIES ANY DISCOMFORT. WILL CONTINUE TO MONITOR.
[2017-06-09 04:39] LABS: APPEARANCE CLEAR (CLEAR); BILIRUBIN NEGATIVE (NEGATIVE); COLOR YELLOW (YELLOW); GLUCOSE NEGATIVE (NEGATIVE); KETONE NEGATIVE (NEGATIVE); NITRITE NEGATIVE (NEGATIVE); PROTEIN NEGATIVE (NEGATIVE); SPECIFIC GRAVITY 1.015 (1.005-1.020); UROBILINOGEN NORMAL (NORMAL)
--- NOTE | 2017-06-09 04:46 | NUR ---
URINE SPECIMEN OBTAINED AT 0415 HRS AND SENT TO LAB. PT DENIES ANY DISCOMFORT. WILL CONTINUE TO MONITOR.
[2017-06-09 05:16] VITALS: BP 172/86
--- NOTE | 2017-06-09 06:39 | NUR ---
PT STATES FEELS BETTER THIS AM. WIFWE AT BEDSIDE. WILL CONTINUE TO MONITOR.
--- NOTE | 2017-06-09 07:54 | NUR ---
RECEIVED REPORT ON PATIENT. MORNING ROUNDS MADE. PATIENT SITTING UP IN BED, EATING BREAKFAST. AND FAMILY AT BEDSIDE. DENIES ANY NEEDS AT THIS TIME. WILL CONTINUE TO MONITOR. CPOC.
--- NOTE | 2017-06-09 10:53 | NUR ---
[facility] TRANSPORTED PATIENT TO [facility] VIA WHEELCHAIR.
--- NOTE | 2017-06-09 11:15 | NUR ---
PATIENT BACK TO ROOM VIA WHEELCHAIR FROM XRAY. CPOC
[2017-06-09 11:42] VITALS: BP 177/77
[2017-06-09 16:07] VITALS: BP 113/71
[2017-06-09 17:15] LABS: BASOPHILS 0 % (0-2); EOSINOPHILS 0 % (0-7); HEMATOCRIT 31.2 % (42.0-54.0); HEMOGLOBIN 9.5 g/dL (13.5-17.5); IMMATURE GRANULOCYTES 0.2 % (0-5); LYMPHOCYTES 1.1 % (15-50); MCH 27.9 pg (26.0-34.0); MCHC 30.4 g/dL (31.0-37.0); MCV 91.5 fL (80.0-100.0); MONOCYTES 3.7 % (2-11); PLATELET COUNT 191 10x3/uL (130-400); RBC 3.41 10x6/uL (4.20-6.10); RDW 16.7 % (11.5-14.5); WBC 10.2 10x3/uL (4.8-10.8)
[2017-06-09 17:22] LABS: ANION GAP 14.4 mmol/L (8-16); CALCIUM 8.2 mg/dL (8.5-10.1); CARBON DIOXIDE 28.8 mmol/L (21.0-32.0); CREATININE - SERUM 2.1 mg/dL (0.6-1.3); POTASSIUM - SERUM 4.2 mmol/L (3.5-5.1)
--- NOTE | 2017-06-09 19:33 | NUR ---
EVENING ROUNDS MADE. PATIENT SITTING UP IN BED, WATCHING TV. SITTING IN CHAIR AT BEDSIDE. NAD NOTED. BED IN LOWEST POSITION & LOCKED, SIDE RAILS UP X2, CALL LIGHT IN REACH. DENIES ANY NEEDS AT THIS TIME.
[2017-06-09 20:00] VITALS: BP 109/68
--- NOTE | 2017-06-09 21:05 | NUR ---
FAMILY REPORTS THAT THE NS HAS BEEN OFF SINCE THEY TOOK HIS ULTRASOUND. RESTARTING NOW AFTER MED PASS.AWAKE AND ALERT.
[2017-06-10] VITALS: BP 132/66
[2017-06-10 04:00] VITALS: BP 111/69
--- NOTE | 2017-06-10 07:30 | NUR ---
RECEIVED REPORT ON PATIENT. MORNING ROUNDS MADE. PATIENT SITTING UP IN BED DOING BREATHING TREATMENT. IS IN CHAIR AT BEDSIDE. BOTH DENY ANY NEEDS AT THIS TIME. BED IN LOWEST POSITION, CL IN REACH, SR UP X 2. WILL CONTINUE TO MONITOR. CPOC.
[2017-06-10 08:18] VITALS: BP 134/53
--- NOTE | 2017-06-10 10:16 | NUR ---
PATIENT SITTING UP IN BED, IN BEDSIDE CHAIR. C/O HIS NOSE HURTING AND BEING DRY FROM THE O2. ADDED SALINE HUMIDIFIER TO O2. WILL CONTINUE TO MONITOR. NO ADDITIONAL NEEDS AT THIS TIME. CPOC.
[2017-06-10 12:12] LABS: IMMUNOGLOBULIN E 9 IU/mL (0-100)
[2017-06-10 12:27] VITALS: BP 162/68
--- NOTE | 2017-06-10 13:53 | NUR ---
PATIENT IN RESTROOM AT THIS TIME. CPOC
--- NOTE | 2017-06-10 15:37 | NUR ---
PATIENT SITTING UP IN BED, MULTIPLE FAMILY MEMBERS AT BEDSIDE. MEDS GIVEN WITHOUT ISSUES. DENIES ANY NEEDS AT THIS TIME. CPOC.
[2017-06-10 16:38] VITALS: BP 146/83
--- NOTE | 2017-06-10 19:20 | NUR ---
EVENING ROUNDS MADE. DENIES ANY NEEDS AT THIS TIME. AT BEDSIDE. BED IN LOWEST POSITION, CALL LIGHT IN REACH, SR UP X2. REPORT GIVEN.
[2017-06-10 21:25] VITALS: BP 155/57
[2017-06-11 00:58] VITALS: BP 156/62
--- NOTE | 2017-06-11 05:08 | NUR ---
PT RESTING WELL IN BED, RESPIRATIONS EVEN AND UNLABORED. CALL LIGHT IN REACH, WILL CONTINUE TO MONITOR.
[2017-06-11 05:43] LABS: BASOPHILS 0 % (0-2); EOSINOPHILS 0 % (0-7); HEMATOCRIT 32.5 % (42.0-54.0); HEMOGLOBIN 9.9 g/dL (13.5-17.5); IMMATURE GRANULOCYTES 0.1 % (0-5); LYMPHOCYTES 2.4 % (15-50); MCH 27.9 pg (26.0-34.0); MCHC 30.5 g/dL (31.0-37.0); MCV 91.5 fL (80.0-100.0); MEAN PLATELET VOLUME 11.1 fL (7.4-10.4); MONOCYTES 3.8 % (2-11); NEUTROPHILS 93.7 % (40-80); PLATELET COUNT 197 10x3/uL (130-400); RBC 3.55 10x6/uL (4.20-6.10); RDW 16.6 % (11.5-14.5)
[2017-06-11 06:18] LABS: WBC 7.1 10x3/uL (4.8-10.8)
[2017-06-11 06:27] LABS: CARBON DIOXIDE 27.5 mmol/L (21.0-32.0); CREATININE - SERUM 2.1 mg/dL (0.6-1.3); POTASSIUM - SERUM 4.5 mmol/L (3.5-5.1)
[2017-06-11 06:32] VITALS: BP 142/64
--- NOTE | 2017-06-11 07:00 | NUR ---
RECEIVED REPORT. ASSUMED CARE OF PATIENT. CALL LIGHT WITHIN REACH. PATIENTS AT BEDSIDE. RESP EVEN AND UNLABORED. DENIES NEEDS AT THIS TIME. NO DISTRESS.
[2017-06-11 08:22] VITALS: BP 163/71
--- NOTE | 2017-06-11 08:40 | NUR ---
PATIENT PLACED IN ISOLATION FOR ESBL IN URINE AT THIS TIME. NO DISTRESS.
--- NOTE | 2017-06-11 11:14 | NUR ---
PT AND FAMILY UPSET ABOUT PATIENT BEING IN ISOLATION. EXPLAINED TO BOTH WHY PT IS IN ISOLATION AND THE PROCOTOL. FAMILY UPSET THAT PERHAPS A GRANDSON MAY TAKE HOME THE INFECTION TO A BABY. FAMILY REQUESTS THEY KNOW WHAT THE CULTURE GREW. ASKED PT'S PERMISSION TO GIVE OUT THE INFORMATION AND FAMILY ANSWERS YES. AGAIN ASKED THE PATIENT FOR PERMISSION SINCE HE IS AWAKE AND ORIENTED. PT GIVES THE PERMISSION FOR THIS. AGAIN, EXPLAINED TO FAMILY ABOUT ISOLATION AND THEY NEED TO WEAR PROTECTIVE GEAR. FAMILY REFUSES.
[2017-06-11 12:37] VITALS: BP 178/73
--- NOTE | 2017-06-11 15:30 | NUR ---
THIS SALES DRIVER AND NURSE FARM LOAN REPRESENTATIVE IN PATIENT ROOM TO EDUCATED DAUGHTER AND FURTHER EDUCATE THE FAMILY ABOUT ESBL AND THE CONTACT PRECAUTIONS THAT ARE CURRENTLY BEING RENDERED. FAMILY VERBALIZED THEIR UNDERSTANDING OF THE NEED FOR ISOLATION. NO DISTRESS. PATIENT SITTING IN BED. IV FLUIDS INFUSING ORDERED.
[2017-06-11 16:28] VITALS: BP 152/69
[2017-06-11 19:38] VITALS: Ht 177.8 cm; Wt 92.3 kg
[2017-06-11 21:26] VITALS: BP 166/69
[2017-06-12] VITALS: BP 139/68
--- NOTE | 2017-06-12 01:39 | NUR ---
PT RESTING WELL IN BED, RESPIRATIONS EVEN AND UNLABORED. SPOUSE AT BEDSIDE. CALL LIGHT IN REACH, WILL CONTINUE PLAN OF CARE.
--- NOTE | 2017-06-12 03:22 | NUR ---
PT IN BED RESTING. BED IN LOW POSITION. CALL LIGHT WITHIN REACH. WILL CTM.
[2017-06-12 06:27] VITALS: BP 168/78
[2017-06-12 06:47] LABS: BASOPHILS 0 % (0-2); EOSINOPHILS 0 % (0-7); HEMATOCRIT 34.1 % (42.0-54.0); HEMOGLOBIN 10.4 g/dL (13.5-17.5); IMMATURE GRANULOCYTES 0.1 % (0-5); LYMPHOCYTES 2.3 % (15-50); MCH 27.9 pg (26.0-34.0); MCHC 30.5 g/dL (31.0-37.0); MCV 91.4 fL (80.0-100.0); MEAN PLATELET VOLUME 11.9 fL (7.4-10.4); MONOCYTES 6.6 % (2-11); PLATELET COUNT 215 10x3/uL (130-400); RBC 3.73 10x6/uL (4.20-6.10); RDW 16.8 % (11.5-14.5); WBC 8.8 10x3/uL (4.8-10.8)
[2017-06-12 07:10] LABS: ANION GAP 14.7 mmol/L (8-16); CALCIUM 8.2 mg/dL (8.5-10.1); CARBON DIOXIDE 27.1 mmol/L (21.0-32.0); CREATININE - SERUM 1.8 mg/dL (0.6-1.3); POTASSIUM - SERUM 4.8 mmol/L (3.5-5.1)
--- NOTE | 2017-06-12 07:15 | NUR ---
REPORT RECEIVED. RR EVEN AND UNLABORED. PT DENIES NEEDS AT THIS TIME. FAMILY AT BEDSIDE. WILL CTM.
[2017-06-12 07:31] VITALS: BP 159/69
[2017-06-12 11:41] VITALS: BP 139/69
[2017-06-12] MEDS ORDERED: BENZONATATE200 MG PO (14:14)
[2017-06-12] MEDS ORDERED: MUCINEX DM ER1 EAC1 PO (14:15)
[2017-06-12] MEDS ORDERED: FLORAJEN3 CAPS460 MG PO (14:15)
[2017-06-12] MEDS ORDERED: OMNICEF300 MG PO (14:15)
[2017-06-12] MEDS ORDERED: PREDNISONE10 MG PO (14:16)
[2017-06-12 16:37] VITALS: BP 146/64
--- NOTE | 2017-06-12 17:06 | NUR ---
Rehab Note- Acute Rehab Prescreen order received. The patient appears to be an appropriate acute inpatient rehab candidate. Will visit with the patient. Thank you for this referral! Anabel Padilla RN Clinical Liaison, [facility] Rehab
--- NOTE | 2017-06-12 17:30 | NUR ---
GAVE PT URINE SAMPLE CUP AND EDUCATED PT ON HOW TO COLLECT STERILE SPECIMEN. VEBALIZED UNDERSTANDING.
--- NOTE | 2017-06-12 18:30 | NUR ---
PT RESTING QUIELTY, RR EVEN AND UNLABORED. PT DENIES NEEDS AT THIS TIME. FAMILY AT BEDSIDE. WILL GIVE REPORT ON PT CONDITION FOR THE DAY.
--- NOTE | 2017-06-12 20:42 | NUR ---
URINE SAMPLE COLLECTED AND SENT TO THE LAB
[2017-06-12 21:03] VITALS: BP 175/79
--- NOTE | 2017-06-13 04:40 | NUR ---
SLAG MOTOR OPERATOR AT BEDSIDE TO OBTAIN VITALS, CALL LIGHT IN REACH. WILL CONTINUE WITH PLAN OF CARE.
[2017-06-13 05:40] VITALS: BP 171/74
[2017-06-13 06:05] LABS: BASOPHILS 0 % (0-2); EOSINOPHILS 0 % (0-7); HEMATOCRIT 33.2 % (42.0-54.0); HEMOGLOBIN 10.2 g/dL (13.5-17.5); IMMATURE GRANULOCYTES 0.3 % (0-5); LYMPHOCYTES 3.4 % (15-50); MCH 27.9 pg (26.0-34.0); MCHC 30.7 g/dL (31.0-37.0); MCV 90.7 fL (80.0-100.0); MEAN PLATELET VOLUME 10.6 fL (7.4-10.4); MONOCYTES 7.2 % (2-11); NEUTROPHILS 89.1 % (40-80); PLATELET COUNT 177 10x3/uL (130-400); RBC 3.66 10x6/uL (4.20-6.10); RDW 16.6 % (11.5-14.5)
[2017-06-13 06:25] LABS: ANION GAP 10.5 mmol/L (8-16); CALCIUM 7.7 mg/dL (8.5-10.1); CARBON DIOXIDE 30.2 mmol/L (21.0-32.0); CREATININE - SERUM 1.7 mg/dL (0.6-1.3); POTASSIUM - SERUM 4.7 mmol/L (3.5-5.1)
--- NOTE | 2017-06-13 07:15 | NUR ---
REPORT RECEIVED, RR EVEN AND UNLABORED, PT DENIES NEEDS AT THIS TIME. FAMILY AT BEDSIDE, WILL CTM.
[2017-06-13 08:34] VITALS: BP 156/75
[2017-06-13 12:25] VITALS: BP 170/70
--- NOTE | 2017-06-13 13:10 | NUR ---
Patient Name: GAVIN VERONICA Admission Status: Elective Accout number: [id number] Admission Date: 06-06-2017 : 1930 Admission Diagnosis:SHORTNESS OF BREATH Attending: ALEJANDRA RODGERS Current LOS: 7 Anticipated DC Date: 06-13-2017 Planned Disposition: Inpatient Rehab Primary Insurance: MEDICARE A & B PLANNED EXTERNAL PROVIDER: [facility] INPATIENT REHAB LATE ENTRY FROM 06-12-17, APPROXIMATELY 1630 HOURS: Discharge Planning Comments: * Is the patient Alert and Oriented? Yes 0 * How many steps to enter\\exit or inside your home? 3 0 * PCP DR RODGERS 0 * Pharmacy [facility] 0 * Preadmission Environment Home with Family 0 * ADLs Independent 0 * Equipment Walker Wheelchair 0 * Other Equipment NO MEDICAL EQUIPMENT PROVIDER PREFERENCE 0 * List name and contact numbers for known caregivers / representatives who currently or will assist patient after discharge: NEREYDA VERONICA, SPOUSE, 0 * Community resources currently utilized None 0 * Please name any agencies selected above. NONE 0 * Additional services required to return to the preadmission environment? No 0 * Can the patient safely return to the preadmission environment? Yes 0 * Has this patient been hospitalized within the prior 30 days at any hospital? No 0 CM RECEIVED DISCHARGE ORDER, MET WITH PT AND SPOUSE IN ROOM TO DISCUSS DISCHARGE PLANNING AND NEEDS. PT REPORTS LIVING AT HOME INDEPENDENTLY WITH SPOUSE. PT HAS WALKER AND WHEELCHAIR AT HOME WITH NO MEDICAL EQUIPMENT PROVIDER PREFERENCE. PT HAS NO OUTSIDE SERVICES ASSISTING IN THE HOME. CM DISCUSSED AVAILABILITY OF HOME HEALTH, REHAB SERVICES AND MEDICAL EQUIPMENT. PT'S SPOUSE REPORTS PT IS NOT LEAVING THE HOSPITAL LONG "THOSE SIGNS" ARE ON THE DOOR. SPOUSE STATES THAT THE INFECTIOUS DISEASE DOCTOR TOLD HER THAT IT IS NOT A BIG DEAL AND YOU WOULD HAVE TO PLAY IN PT'S URINE TO GET INFECTED. CM EXPLAINED HOSPITAL ISOLATION POLICY AND THAT IT WAS IN PLACE FOR PROTECTION OF PT AND OTHER VISITORS TO THE HOSPITAL. SPOUSE REPORTS THEY HAVE A VERY SICK GRANDCHILD AND THEY ARE NOT GOING TO TAKE PT HOME AND INFECT HER HOME SO THAT THE GRANDSON COULD NEVER COME OVER. CM EXPLORED SHELTER PLACEMENT OR SWING BED IN [place] AT [facility]; PT'S SPOUSE INFORMED CM THAT PT IS GOING NOWHERE BUT HOME AT DISCHARGE AND THAT HE IS NOT LEAVING UNTIL THE SIGNS ARE OFF THE DOOR. DIRECTOR SMB SALES NURSE CAME INTO ROOM, EXPLAINED AGAIN ISOLATION POLICY. PT'S SPOUSE CRYING AND CALLING OTHERS ON THE PHONE. CM PROVIDED AND EXPLAINED IMPORTANT MESSAGE FROM MEDICARE. PT'S SPOUSE REPORTS THERE IS NO USE TO CALL MEDICARE THEY ARE NOT GOING TO AGREE TO KEEP PT IN THE HOSPITAL JUST BECAUSE THEY ARE AFRAID OF INFECTING THE GRANDSON. CM OFFERED OTHER PLACEMENT OPTIONS, PT AND SPOUSE REFUSED. SPOUSE REPORTS BEING UPSET THAT THE DOCTOR WENT FROM TELLING HER YESTERDAY THEY WOULD BE IN THE HOSPITAL UNTIL DEJUAN TO HE IS READY TO GO HOME THE NEXT DAY. CM EXPLAINED THAT THE DOCTOR HAS YET TO ROUND AND WILL BE ABLE TO ANSWER ALL QUESTIONS. SPOUSE REPORTS CONCERN THAT PT IS ON OXYGEN AND NEBULIZER AND HAS NEITHER OF THESE AT HOME. CM EXPLAINED THAT OXYGEN TESTING AND ORDERS FOR EQUIPMENT CAN BE ARRANGED QUICKLY FOR DISCHARGE ON DAY OF DISCHARGE. CM DISCUSSED AVAILABILITY OF HOME HEALTH SERVICES; PT DENIES FURTHER NEEDS, SPOUSE CRYING ON CHAIR CM LEAVES. CM NOTIFIED DR. MONROY AND JIE MUSTAFA OF CONCERNS RAISED BY PT'S SPOUSE. CM RECEIVED ORDER FOR INPATIENT REHAB PRESCREEN, SPOKE TO PT AND SPOUSE IN ROOM, WAS INFORMED BY PT'S SPOUSE THAT "WE ARE NOT LEAVING THE HOSPITAL." CM BRIEFLY DISCUSSED THE INPATIENT PRESCREEN ORDER AND OPTIONS. PT'S SPOUSE WOULD LIKE PT TO STAY AT [place] FOR INPATIENT REHAB PRIOR TO GOING HOME. CM WAITING COMPLETION AND DETERMINATION FROM [facility] INPATIENT RE[facility]AB. Mutton Puncher: Sachin Contreras
[2017-06-13 16:35] VITALS: BP 143/70
--- NOTE | 2017-06-13 16:51 | NUR ---
Rehab Note- To be admitted to [facility] Acute Rehab today. Thank you for this referral! Anabel Padilla RN Clinical Liaison, [facility] Rehab
--- NOTE | 2017-06-13 17:12 | NUR ---
Patient Name: GAVIN VERONICA Encounter No: [id number] : 1930 Primary Insurance: MEDICARE A & B Anticipated DC Date: 06-13-2017 Planned Disposition: Inpatient Rehab External Planned Provider: [facility] INPATIENT REHAB DCP follow-up note: CM SPOKE TO LEX[facility] OF INPATIENT REHAB, THEY PLAN TO ACCEPT PT TODAY FOR REHAB. PT WILL ADMIT TO ROOM 1117-B. BEDSIDE NURSE NOTIFIED TO CALL REPORT. ALPHONSO NEELY, CASE MANAGEMENT
--- NOTE | 2017-06-13 18:30 | NUR ---
PT DISCHARGED. D/C INSTRUCTIONS PROVIDED TO PT AND FAMILY. HAD MULTIPLE CONCERNS REGARDING PT DISCHARGE. ANSWERED QUESTIONS TO THE BEST OF MY KNOWLEDGE AND DISCUSSED D/C FOR OVER 15 MINUTES WITH FAMILY AND PT. PT WILL BE LEAVING UNIT VIA WHEELCHAIR. LEFT IV CATHTER IN DUE TO PT POSSIBLY RECEVING IV ABX IN REHAB.
== END 2017-06-13 18:59 | DRG 179 ==
LOC: D.M2 14:46
PROVIDERS: Family Medicine; Internal Medicine Pulmonary Disease; ADMIT Family Medicine
DX: J15.6 Pneumonia due to other Gram-negative bacteria (principal); J13 Pneumonia due to Streptococcus pneumoniae; R82.71 Bacteriuria; I25.10 Atherosclerotic heart disease of native coronary artery without angina pectoris; I12.9 Hypertensive chronic kidney disease with stage 1 through stage 4 chronic kidney disease, or unspecified chronic kidney disease; N18.9 Chronic kidney disease, unspecified; I48.91 Unspecified atrial fibrillation; D64.9 Anemia, unspecified; G20 Parkinson's disease; Z95.1 Presence of aortocoronary bypass graft; Z86.73 Personal history of transient ischemic attack (TIA), and cerebral infarction without residual deficits; Z87.891 Personal history of nicotine dependence; G72.89 Other specified myopathies; J44.9 Chronic obstructive pulmonary disease, unspecified

== ENCOUNTER 2017-06-13 16:54 | Inpatient (IN) | payer MEDICARE ==
[~2017-06-13] VITALS: Ht 177.8 cm; Wt 92.1 kg
[~2017-06-13 16:54] MED LIST changes: +ASCORBIC ACID500 MG PO; +BENZONATATE200 MG PO; +FLORAJEN3 CAPS460 MG PO; +MUCINEX DM ER1 EAC1 PO; +OMNICEF300 MG PO; +PACERONE200 MG PO; +PREDNISONE10 MG PO
--- NOTE | 2017-06-13 19:09 | NUR ---
RECIEVED AT 1900 AND ADMITTED TO ROOM 1115. BROUGHT INTO UNIT IN W/C BY STAFF WITH SPOUSE AT HIS SIDE. ALERT AND ORIENTED. PLEASANT AND COOPERATIVE. DENIES ANY PAIN AT THIS TIME. IN ISOLATION R/T HX OF ESBL IN URINE. IV TO LEFT WRIST PATENT WITH DRESSING INTACT. NO REDNESS OR SWELLING TO SITE. CALL LIGHT AND OVERBED TABLE IN RRRREACH.
--- NOTE | 2017-06-13 23:10 | NUR ---
RESTING IN BED WITH EYES CLOSED. NO S/S OF DISTRESS OBSERVED. CALL LIGHT AND OVERBAD TABLE IN REACAH. SPOUSE AT BEDSIDE WITH EYES CLOSED.
[2017-06-13 23:27] VITALS: BP 153/86; BMI 29.1
--- NOTE | 2017-06-14 04:15 | NUR ---
RESTING IN BED WITH EYES CLOSED. NO S/S OF DISTRESS OBSERVED. O2@4 LITERS PER N/C IN PLACE. RESP EVEN AND UNLABORED. CALL LIGHT AND OVERBED TABLE IN REACH.
--- NOTE | 2017-06-14 08:00 | NUR ---
SITTING UP IN BED. IN ROOM WITH HIM. CALL LIGHT IN REACH. OXYGEN IN PLACE VIA NC. CALL LIGHT IN REACH
[2017-06-14 08:12] LABS: BASOPHILS 0 % (0-2); EOSINOPHILS 0 % (0-7); HEMATOCRIT 34.3 % (42.0-54.0); HEMOGLOBIN 10.4 g/dL (13.5-17.5); IMMATURE GRANULOCYTES 0.4 % (0-5); LYMPHOCYTES 2.6 % (15-50); MCH 27.3 pg (26.0-34.0); MCHC 30.3 g/dL (31.0-37.0); MEAN PLATELET VOLUME 11.4 fL (7.4-10.4); MONOCYTES 5.3 % (2-11); NEUTROPHILS 91.7 % (40-80); PLATELET COUNT 183 10x3/uL (130-400); RBC 3.81 10x6/uL (4.20-6.10); RDW 16.4 % (11.5-14.5); WBC 8.1 10x3/uL (4.8-10.8)
[2017-06-14 08:26] LABS: ANION GAP 11.6 mmol/L (8-16); CARBON DIOXIDE 29.9 mmol/L (21.0-32.0); CREATININE - SERUM 1.7 mg/dL (0.6-1.3); POTASSIUM - SERUM 4.5 mmol/L (3.5-5.1)
--- NOTE | 2017-06-14 08:29 | NUR ---
SITTING UP EATING BREAKFAST. DENIES NEEDS.
[2017-06-14 10:22] VITALS: BP 173/81
[2017-06-14 11:15] VITALS: Ht 177.8 cm; Wt 92.1 kg
--- NOTE | 2017-06-14 11:43 | NUR ---
PATIENT ADMITTED TO REHAB FROM ACUTE FLOOR. DR. RODGERS IS PATIENT PCP. DME AT HOME IS WALKER AND WHEELCHAIR. DISCHARGE PLANS ARE FOR PATIENT TO RETURN HOME WITH HIS SPOUSE. WILL CONTINUE TO FOLLOW WITH PATIENT AND WILL ASSIST WITH DISCHARGE NEEDS.
--- NOTE | 2017-06-14 12:00 | NUR ---
SITTING UP EATING LUNCH. STILL CONFUSED BUT PLEASANT. DENIES PAIN. BED ALERMS SET ON BED X2 (WHITE ALERM BED AND KYRIE PRESSURE PAD), YELLOW BRACELET, CLOSE TO NURSES STATION POSSIBLE. HE IS IMPULSEIVE TO GET OUT OF BED BY HIMSELF ANYHOW. REMINDED SEVERAL TIMES NOT TO GET UP BY HIMSELF.
--- NOTE | 2017-06-14 15:00 | NUR ---
IN W/C. IN ROOM
--- NOTE | 2017-06-14 18:12 | NUR ---
SITTING UP IN BED WATCHING TV. IN ROOM WITH PT. HE DENIES NEEDS OR C/O
--- NOTE | 2017-06-14 19:51 | NUR ---
PT. IN BED WITH HOB UP FOR COMFORT AND IS WATCHING TV. CALL LIGHT WITHIN REACH.
--- NOTE | 2017-06-14 21:22 | NUR ---
PT IS RESTING IN BED WATCHING TV WITH HIS . ALERT AND ORIENTED X 3. DENIES ACUTE DISCOMFORT AT THIS TIME. O2 IS ON @ 3LPM PER NC. PT BECOMES SOB WITH EXHERTION. CONTACT PRECAUTIONS OBSERVED. CONTROLS TO BED NOTED TO NOT BE WORKING. BED EXCHANGED AT THIS TIME.
[2017-06-14 21:58] VITALS: BP 158/74
--- NOTE | 2017-06-15 00:05 | NUR ---
RESTING IN BED WITH EYES CLOSED.
--- NOTE | 2017-06-15 03:00 | NUR ---
PT IS RESTING QUIETLY IN BED WITH EYES CLOSED. NO DISTRESS NOTED. SPOUSE SLEEPING IN RECLINER AT BEDSIDE.
--- NOTE | 2017-06-15 05:54 | NUR ---
PT RESTING IN BED WITH EYES CLOSED.
[2017-06-15 08:00] VITALS: BP 136/60
--- NOTE | 2017-06-15 08:00 | NUR ---
SHIFT ASSMT COMPLETED.O2 ON AT 3L/NC.CL IN REACH.BREAKFAST GIVEN.
--- NOTE | 2017-06-15 12:00 | NUR ---
IN BED EATING LUNCH.FAMILY AT BEDSIDE.CL IN REACH.
--- NOTE | 2017-06-15 16:00 | NUR ---
WILL RESTART UPDRAFT TX'S ORDERED/.
[2017-06-15 20:00] VITALS: BP 136/66
--- NOTE | 2017-06-15 20:15 | NUR ---
PT. IN BED WITH HOB UP FOR COMFORT AND IS WATCHING TV. NO VOICED NEEDS AND HE HAS HIS CALL LIGHT WITHIN REACH.
--- NOTE | 2017-06-15 21:00 | NUR ---
PT IN BED WITH HOB UP FOR COMFORT. WATCHING TV. AT BEDSIDE. CONTACT ISOLATION. 02 @ 3L VIA NC. LEFT WRIST SL. BED IN LOWEST POSITION AND CALL LIGHT WITHIN REACH.
--- NOTE | 2017-06-16 01:00 | NUR ---
PT IN BED WITH HOB UP FOR COMFORT. EYES CLOSED. CHEST RISING AND FALLING. BED IN LOWEST POSTION AND CALL LIGHT WITHIN REACH.
--- NOTE | 2017-06-16 04:41 | NUR ---
PT LYING IN BED. EYES CLSOED. CHEST RISING AND FALLING. AT BEDSIDE. BED IN LOWEST POSITION AND CALL LIGHT WITHIN REACH.
--- NOTE | 2017-06-16 08:00 | NUR ---
SHIFT ASSMT COMPLETED.STATES FEELING BETTER SINCE UPDRAFTS AND TREATMENTS STARTED.
[2017-06-16 08:39] VITALS: BP 146/60
--- NOTE | 2017-06-16 12:00 | NUR ---
EATING LUNCH.CL IN REACH. AT BEDSIDE.
--- NOTE | 2017-06-16 16:00 | NUR ---
SITTING UP IN CHAIR.DENIES NEEDS.CL IN REACH.
[2017-06-16 19:00] VITALS: BP 142/63
--- NOTE | 2017-06-16 19:17 | NUR ---
PT. IN BED WITH HOB UP FOR COMFORT. SEVERAL VISITORS PRESENT. CALL LIGHT WITHIN REACH.
--- NOTE | 2017-06-16 20:51 | NUR ---
DC LEFT WRIST IV WITH CATH TIP INTACT. PT TOLERATED PROCEDURE WELL. PT HAS NO COMPLAINTS OR ANY FURTHER NEEDS AT THIS TIME.
--- NOTE | 2017-06-17 01:50 | NUR ---
PT IN BED WITH HOB UP FOR COMFORT. EYES CLOSED. CHEST RISING AND FALLING. AT BEDSIDE. BED IN LOWEST POSITION AND CALL LIGHT WITHIN REACH.
--- NOTE | 2017-06-17 05:16 | NUR ---
PT LYING IN BED WITH HOB UP FOR COMFORT. EYES CLOSED. CHEST RISING AND FALLING. BED IN LOWEST POSITION AND CALL LGIHT WITHIN REACH. AT BEDSIDE.
[2017-06-17 07:10] LABS: BASOPHILS 0 % (0-2); EOSINOPHILS 0.2 % (0-7); HEMATOCRIT 33.1 % (42.0-54.0); HEMOGLOBIN 10.1 g/dL (13.5-17.5); IMMATURE GRANULOCYTES 0.3 % (0-5); LYMPHOCYTES 3.8 % (15-50); MCH 27.4 pg (26.0-34.0); MCHC 30.5 g/dL (31.0-37.0); MCV 89.9 fL (80.0-100.0); MEAN PLATELET VOLUME 11.3 fL (7.4-10.4); MONOCYTES 7.2 % (2-11); NEUTROPHILS 88.5 % (40-80); PLATELET COUNT 157 10x3/uL (130-400); RBC 3.68 10x6/uL (4.20-6.10); RDW 16.2 % (11.5-14.5); WBC 8.8 10x3/uL (4.8-10.8)
[2017-06-17 07:22] LABS: ANION GAP 12.8 mmol/L (8-16); CALCIUM 7.9 mg/dL (8.5-10.1); CARBON DIOXIDE 29.7 mmol/L (21.0-32.0); CREATININE - SERUM 1.6 mg/dL (0.6-1.3); POTASSIUM - SERUM 4.5 mmol/L (3.5-5.1)
[2017-06-17 08:53] VITALS: BP 140/68
[2017-06-17] MEDS ORDERED: BACTRIM 400-801 TAB PO (09:04)
--- NOTE | 2017-06-17 09:05 | RHP ---
PATIENT: GAVIN VERONICA MEDICAL RECORD: [id number] ACCOUNT: [id number] LOCATION:[facility]1115 : [birth year] ADMISSION DATE: 06/13/17 REHABILITATION HISTORY AND PHYSICAL EXAMINATION POST ADMISSION PHYSICIAN EXAMINATION DATE OF ADMISSION: 06/13/2017. ADMITTING DIAGNOSES: Diffuse myopathy. HISTORY OF PRESENT ILLNESS: The patient is admitted to inpatient rehab with diffuse myopathy in an 86-year-old gentleman who has got a history of anemia, Parkinson's, coronary artery disease, status post PROFESSOR OF HISTORY and stent placement, coronary artery bypass grafting, atrial fibrillation, hypertension, hyperlipidemia, and rheumatic fever as a child who is admitted with increasing shortness of breath and productive cough. The patient was hospitalized this year for coronary artery disease as well as a right internal carotid endarterectomy times 3. The patient has got a history of smoking, but quit 53 years ago. He only smoked for 6 years. No family history of lung disease. No history of TB, DVT, or PE. He has had no exposure to asbestos, no sleep apnea or any other complaints. 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 Chest x-ray on 06/07 showed a left lower lobe pneumonia and effusion. The patient has been ill since May 11, who presented with a 2-day history of progressive shortness of breath who was unable to lay in bed flat, had to sit up in a recliner. He has some wheezing, but no leg edema. He has had a productive yellow cough, [id number] with some yellow sputum. No hemoptysis. Denies any aspiration or reflux. No sinusitis or rhinitis. During the hospital stay, he was diagnosed with left lower lobe community-acquired pneumonia with a gram-negative tommy and pleural effusion. He has had a UTI positive for E. coli, he required 7 days of antibiotic. He has been on IV steroids requiring taper per Dr. Anthony. Prior to becoming ill in May, he was completely independent with ADLs and mobility, he is currently moderate to max assist for ADLs and max assist using a rolling walker for ambulation. He is going to require inpatient therapy here in the rehab, definitely to get him back to his prior level of functioning. COMORBIDITIES: In this patient include left lower lobe pneumonia and pleural effusion, E. coli, CHF, coronary artery disease, hyperlipidemia, chronic kidney disease, AFib with rapid ventricular response, Parkinson's, anemia, and elevated glucose. PAST MEDICAL HISTORY: Significant for TIA and Parkinson's, cataracts, got a history of stents and angioplasty, syncope, coronary artery disease, peripheral vascular disease, hyperlipidemia, rheumatic fever, and depression and anxiety. PAST SURGICAL HISTORY: Includes right shoulder replacement, coronary artery bypass grafting times 2. ALLERGIES: No known drug allergies. CURRENT MEDICATIONS: Include prednisone on a taper, Zoloft 75 mg daily, Pravachol 20 mg daily, metoprolol 25 mg daily, Proscar 5 mg daily, vitamin C 1000 mg daily, amiodarone 400 mg daily, polyethylene glycol 17 grams in 8 ounces of water daily, Mucinex 1 tab b.i.d., Omnicef 300 mg b.i.d., and Tessalon Perles 200 mg t.i.d. p.r.n. HISTORY AND PHYSICAL [id number] GAVIN VERONICA HABITS: As above, did smoke 53 years ago. FAMILY HISTORY: Noncontributory. SOCIAL HISTORY: The patient hopes to return back home and get back to his prior level of functioning. REVIEW OF SYSTEMS: GENERAL: He does complain of a little weakness, fatigue. He is complaining cold, cough, or congestion. CARDIOVASCULAR: Denies any chest pain. LUNGS: Does complain of some shortness of breath. PHYSICAL EXAMINATION: VITAL SIGNS: Stable, afebrile. GENERAL: He is a somewhat obese gentleman in no acute distress, alert upon exam. HEENT: Normocephalic and atraumatic. Mucosa moist. NECK: Supple. No lymphadenopathy. LUNGS: Decreased breath sounds in the bases, left greater than right. CARDIOVASCULAR: Regular rate and rhythm. ABDOMEN: Benign. EXTREMITIES: No clubbing, cyanosis, or edema. NEUROLOGIC: Intact. LABORATORY DATA: His white count is 8.1, H&H of 10 and 34 and platelet count is noted to be 183. Sodium 143, potassium 4.5, BUN and creatinine of 43 and 1.7, and blood sugar noted to be 178. ASSESSMENT: This is an 86-year-old gentleman admitted to the rehab with a working diagnosis of diffuse myopathy, complicated by left lower lobe pneumonia and effusion. The patient has potential to make improvement. We will institute the following multidisciplinary therapies including to, but not limited to physical, occupational, respiratory, speech, nutritional services, prosthetics, and orthotics. Given his complex condition and risk for more complications, rehabilitation services cannot be provided at a lower level of care such as a fdc facility. PLAN: 1. Admit to [facility] rehab for intensive inpatient therapy to include the following disciplines: A. Physical therapy to improve gait, all transfer skills and bed mobility to a modified independent level. B. Occupational therapy to improve activities of daily living to a modified independent level. C. Case management to assist with discharge planning and placement options. D. Nutrition to assist with nutritional needs. E. Rehabilitation nursing to assist in monitoring the patient's and motivation assist with any type of bowel or bladder management. 2. The patient's current medication and medical care will be continued. 3. The patient will be placed on standard fall precautions. We will discuss this patient during care team staff meeting next week. 4. We will go ahead and check a chest x-ray on him in a couple days to reevaluate his left lower lobe pneumonia and effusion. HISTORY AND PHYSICAL [id number] GAVIN VERONICA TRANSINT:[id number] Voice Confirmation ID: [id number] DOCUMENT ID: [id number] SG notes whether there has been none or any medical/functional change since admission: - No change since pre-admission screen. SG attests patient continues to be appropriate for IRF: - Continues to be appropriate. VIJAY AGUSTIN MD at 0905 CC: [id number] DICTATION DATE: 06/14/17 0849 COLOR CHECKER: 06/14/17 1053 ADM IN [facility] [address] [place] [address]
--- NOTE | 2017-06-17 10:18 | NUR ---
SITTING UP IN W/C IN THERAPY GYM WORKING WITH THERAPIST. DENIES NEEDS OR C/O.
--- NOTE | 2017-06-17 14:46 | NUR ---
SITTING IN W/C IN [facility]. HAD BEEN WORKING WITH THERAPY. SATS DROPED TO 83 ON 2L NC. OXYGEN INCREASED TO 4L AND SATS INCREASED TO 91%. PT DENIES PAIN.
--- NOTE | 2017-06-17 15:05 | NUR ---
CALLED TO ROOM BY THERAPIST. PT NON RESPONSIVE BUT BREATHING. RAPID RESPOSE CALLED. PT PLACED IN BED BY THERAPY AND NURSE ASSESSED PT AND NOTED HE WAS NOT BREATHING AND HAD NO PULSE. CARL CHATMAN CALLED AT 1505.---SEE CARL CHATMAN SHEET FOR DETAILS----PT HAD BP AND WAS TRANSFERED OFF REHAB FLOOR TO ICU AT 1541.
--- NOTE | 2017-06-17 16:31 | NUR ---
DUE TO CHANGE IN MEDICAL CONDTION PATIENT DISCHARGED FROM REHAB AND ADMITTED TO ICU. FAMILY AT BEDSIDE
--- NOTE | 2017-06-17 17:07 | NUR ---
1545- REC'D PT FROM REHAB,PT VENTED, HR 44 WIDE BUNDLE BRANCH BLOCK ON SOLE STAPLER WELT, UNABLE TO PALPATE PULSE. FÉLIX COMMERCIAL LOAN ANALYST FROM REHAB STATES SHE "HAS SPOKEN WITH FAMILY, NO HEROIC MEASURES TO BE TAKEN. PT IS NOW DNR." 1551-HR 56 FAMILY AT THE BEDSIDE 1601-AGONAL HEART RHYTHM, REMAINS ON VENT, PT FAMILY AT THE BEDSIDE. DR. SWANSON AT THE BEDSIDE. PARTHA AGREEING TO DNR STATUS 1605-HR ASYSTOLE 1700-SPOKE WITH DARA AT [facility] IN [place], "WILL BE THERE SHORTLY, IF I CAN SPEAK WITH THE WHEN I GET THERE TO SEE WHAT KIND OF SERVICE THEY WOULD LIKE." PTS 'S PHONE NUMBER GIVEN AND PTS SON SIMONE'S PHONE NUMBER GIVEN PER FAMILY REQUEST IN THE "CHANCE THEY ARE NOT HERE WHEN HE ARRIVES." 171-SPOKE WITH ALLISON FROM [facility], PT IS RULED OUT DUE TO PTS AGE.
--- NOTE | 2017-06-17 17:46 | NUR ---
PT DISCHARGED WITH DARA FROM [facility], PTS FAMILY AT THE BEDSIDE.
== END 2017-06-17 15:51 | disposition short-term general hospital (02) | DRG 91 ==
LOC: D.REHAB 16:54
PROVIDERS: ADMIT Emergency Medicine
PROC: 0BH17EZ Insertion of Endotracheal Airway into Trachea, Via Natural or Artificial Opening (ICD-10-PCS; principal; 2017-06-17)
DX: G72.89 Other specified myopathies (principal); I46.9 Cardiac arrest, cause unspecified; J15.6 Pneumonia due to other Gram-negative bacteria; J90 Pleural effusion, not elsewhere classified; N39.0 Urinary tract infection, site not specified; A49.8 Other bacterial infections of unspecified site; N18.9 Chronic kidney disease, unspecified; I50.9 Heart failure, unspecified; I25.10 Atherosclerotic heart disease of native coronary artery without angina pectoris; E78.5 Hyperlipidemia, unspecified; I48.91 Unspecified atrial fibrillation; G20 Parkinson's disease; D64.9 Anemia, unspecified; Z95.1 Presence of aortocoronary bypass graft; Z66 Do not resuscitate; B96.20 Unspecified Escherichia coli [E. coli] as the cause of diseases classified elsewhere

== ENCOUNTER 2017-06-17 15:41 | Inpatient (IN) | payer MEDICARE ==
[2017-06-14 11:15] VITALS: BMI 29.1
[~2017-06-17 15:41] MED LIST changes: +BACTRIM 400-801 TAB PO
== END 2017-06-17 15:45 | DRG 298 ==
LOC: D.ICU 15:41 → UNDOADMIN 15:51 → D.ICU 15:51
DX: I46.9 Cardiac arrest, cause unspecified (principal); Z66 Do not resuscitate